=== PATIENT | male | born 1955 | race Caucasian/White ===

== ENCOUNTER 2016-04-04 10:14 | Inpatient (IN) | payer MEDICAID ==
[~2016-04-04] VITALS: Ht 167.6 cm; Wt 76.8 kg
[2016-04-04 12:42] LABS: ADD UMIC YES; URINE BILIRUBIN (Dip) NEGATIVE (NEGATIVE); URINE BLOOD (Dip) 2+ (NEGATIVE); URINE COLOR LT. YELLOW (YELLOW); URINE GLUCOSE (Dip) >=1000 % (NEGATIVE); URINE KETONES (Dip) NEGATIVE (NEGATIVE); URINE LEUKOCYTE ESTERASE (Dip) NEGATIVE (NEGATIVE); URINE NITRITE (Dip) NEGATIVE (NEGATIVE); URINE TOTAL PROTEIN (Dip) 2+ (NEGATIVE); URINE UROBILINOGEN (Dip) 0.2 E.U./dL (0.1-1.0)
[2016-04-04 12:52] LABS: POTASSIUM 4.4 mmol/L (3.5-5.1)
[2016-04-04 12:55] LABS: CREATININE 1.18 mg/dl (0.61-1.24); INR 0.96; PROTIME 12.8 Sec (12.2-14.2)
[2016-04-04 12:56] LABS: CALCIUM 8.7 mg/dl (8.4-10.2); PARTIAL THROMBOPLASTIN TIME 26.1 Sec (25.0-35.0)
[2016-04-04 13:17] LABS: BASOPHILS % 0.2 % (0.0-2.0); EOSINOPHILS # 0.2 10^3/ul (0.0-0.5); EOSINOPHILS % 1.7 % (0.0-7.0); HEMATOCRIT 29.4 % (42.0-52.0); LYMPHOCYTES # 1.2 10^3/ul (0.8-2.9); LYMPHOCYTES % 10.7 % (15.0-51.0); MEAN CORPUSCULAR HEMOGLOBIN 28.9 pg (29.0-33.0); MEAN CORPUSCULAR VOLUME 85.1 fl (82.0-101.0); MEAN PLATELET VOLUME 7.5 fl (7.4-10.4); MONOCYTE # 0.6 10^3/ul (0.3-0.9); MONOCYTES % 5.5 % (0.0-11.0); NEUTROPHIL # 9.3 10^3/ul (1.6-7.5); NEUTROPHILS % 81.9 % (39.0-77.0); PLATELET COUNT 475 10^3/UL (140-440); RED BLOOD COUNT 3.45 10^6/ul (4.70-6.10); UNCORRECTED WBC 11.3 10^3/ul (4.8-10.8); WHITE BLOOD COUNT 11.3 10^3/ul (4.8-10.8)
[2016-04-04 13:19] LABS: CONDITION 1
--- NOTE | 2016-04-04 14:26 | RADRPT ---
PROCEDURE: XR Chest 1 View. CLINICAL INDICATION: Abnormal breath sounds, preop. TECHNIQUE: AP view of the chest were obtained. COMPARISON: None. FINDINGS: The cardiomediastinal silhouette is within normal limits. Lungs are hyperexpanded. No consolidations are identified. No pneumothorax is seen. Osseous structures are intact. IMPRESSION: Hyperexpanded, clear lungs. RPTAT: AA .Elie Lowery MD, Date Time Electronically viewed and signed by .Elie Lowery MD, MD on 04/04/2016 14:26 .P/
--- NOTE | 2016-04-04 15:28 | RADRPT ---
PROCEDURE: XR Foot. CLINICAL INDICATION: Left foot pain and swelling. bilateral lower extremity gangrene. TECHNIQUE: Three views of the left foot are available for review. COMPARISON: None available FINDINGS: There are postsurgical changes of prior fifth ray amputation and partial amputation of the head and neck of the fourth metatarsal. Severe neuropathic changes are seen involving the intertarsal and tar sometatarsal joints. There is disorganization and productive osseous changes. There is loss of hieu ntar arch. There is probable plantar ulcer at the level of talonavicular joint. Vascular calcifica tions consistent with atherosclerosis. IMPRESSION: 1. Probable ulcer in the plantar in the region of the talonavicular joint. Recommend MRI for the ev aluation of osteomyelitis. 2. Severe neuropathic joint changes. 3. Prior amputation of the fifth ray and partial amputation of the head and neck of the fourth meta tarsal. 4. Vascular calcifications. RPTAT: BB .Rosario Parra MD, MD Date Time Electronically viewed and signed by .Rosario Parra MD, on 04/04/2016 15:28 .O/
--- NOTE | 2016-04-04 15:31 | RADRPT ---
PROCEDURE: XR Ankle. CLINICAL INDICATION: Right ankle pain TECHNIQUE: Three views of the right ankle are available for review. COMPARISON: None available FINDINGS: There is diffuse soft tissue swelling. Prior amputation of the metatarsals. There is a small planta r calcaneal spur. There is no acute fracture or dislocation. Vascular calcifications consistent wi th atherosclerosis. There is no lytic / destructive changes. IMPRESSION: 1. No lytic or destructive osseous changes. 2. Diffuse soft tissue swelling. 3. Prior amputations at the level of the metatarsal neck. 4. Vascular calcifications. RPTAT: BB .Rosario Parra MD, Date Time Electronically viewed and signed by .Rosario Parra MD, on 04/04/2016 15:30 .O/
--- NOTE | 2016-04-04 15:39 | RADRPT ---
PROCEDURE: XR Ankle. CLINICAL INDICATION: Left ankle pain. TECHNIQUE: 3 views of the left ankle were performed. COMPARISON: None. FINDINGS: There are severe neuropathic changes involving the intertarsal joints more evident at the calcaneocu boid. There is a plantar ulcer at the lateral midfoot. Extensive productive osseous changes are pr esent at the intertarsal joints. There is diffuse soft tissue swelling. Partially imaged amputatio n of the metatarsals. There is no acute fracture or dislocation. IMPRESSION: 1. Plantar ulcer at the lateral midfoot. Severe neuropathic changes involving the intertarsal join ts. It is difficult to exclude osteomyelitis. Recommend MRI for further evaluation. 2. Diffuse soft tissue swelling. 3. Vascular calcifications. RPTAT: BB .Rosario Parra MD, Date Time Electronically viewed and signed by .Rosario Parra MD, on 04/04/2016 15:38 .O/
--- NOTE | 2016-04-04 15:51 | RADRPT ---
PROCEDURE: Right foot series CLINICAL INDICATION: Pain TECHNIQUE: Three views. COMPARISON: None FINDINGS: The patient is status post prior amputation of the metatarsals at the midshaft level. No lytic / juan antonio tructive osseous changes are noted. There is diffuse soft tissue swelling. The bones are demineral ized. IMPRESSION: 1. No lytic / destructive osseous changes. 2. Diffuse soft tissue swelling. 3. Prior amputation at the midshaft metatarsals. RPTAT: BB .Rosario Parra MD, Date Time Electronically viewed and signed by .Rosario Parra MD, on 04/04/2016 15:42 .O/
--- NOTE | 2016-04-04 18:19 | HP ---
DATE OF ADMISSION: 04/04/2016 CONSULTANTS: 1. Dr. Maximo Pritchard 2. Dr. Aramis Bobo 3. Dr. Lockett. CHIEF COMPLAINT: Left foot diabetic ulcer. HISTORY OF PRESENT ILLNESS: This is a very pleasant 60-year-old gentleman with past medical history of diabetes mellitus, dyslipidemia, hypertension, bilateral foot ulcer. The patient is status post bilateral foot fifth toe amputations, who has been having an ulcer in the lateral aspect of his lef t foot and was followed up at [facility]wound clinic today and was found to have worsening of his ulcer. Therefore, the patient has been set up to be transferred to [facility] for further evaluation and IV antibiotics. At this time, the patient denies any chest pain, shortness of breat h, nausea, vomiting, diarrhea. No headache, dizziness, lightheadedness. No change in visual acuity , diplopia, photophobia. No abdominal pain, no change in the color of stool. Positive for pain in the lateral aspect of his left foot and sole of his right foot pain ____ ulcers and worsening of the ulcer. PAST MEDICAL AND SURGICAL HISTORY: 1. Hypertension. 2. Diabetes mellitus. 3. Dyslipidemia. 4. Peripheral vascular disease. MEDICATIONS: List is unknown at this time. ALLERGIES: NO KNOWN DRUG ALLERGIES. FAMILY HISTORY: Positive for diabetes mellitus and hypertension. SOCIAL HISTORY: Negative x3 for smoking, alcohol, illicit drugs. REVIEW OF SYSTEMS: As above per HPI, otherwise 12 systems have been found to be negative. PHYSICAL EXAMINATION: VITAL SIGNS: The patient is afebrile, blood pressure 124/65. GENERAL APPEARANCE: The patient is lying in bed comfortably without any distress. He is awake, terry rt, oriented. He is able to answer my questions properly. EYES AND EARS, NOSE, THROAT: Conjunctivae and lids are normal. Pupils are normal. Extraocular nor mal. Hearing grossly normal. Lips are normal. Oral mucosa is moist. NECK: Supple. Trachea is midline. No lymphadenopathy. RESPIRATORY: Effort is normal. Clear to auscultation bilaterally. CARDIOVASCULAR: Normal S1, S2. Regular rhythm and rate. No murmur, no bruits, no edema. Peripher al pulses, radial pulses palpable. Cap refill is normal. CHEST: Normal expansion of thorax during inspiration. GASTROINTESTINAL: Abdomen is soft, nontender, not distended. Bowel sounds present. No guarding, n o rebound. GENITOURINARY: Deferred. MUSCULOSKELETAL: Upper extremities within normal limits. Lower extremity there is a ____ x 2 ulcer on the lateral aspect of his right foot. There are 2 ulcers on the sole of his right foot, which a re 2 x 2 cm. Decreased pulses in bilateral lower extremities. NEUROLOGIC: Cranial nerves II through XII are grossly intact. PSYCHIATRIC: Normal judgment and insight. Alert and oriented x3. Mood and affect is normal. LABORATORY WORK: Glucose 325. ASSESSMENT AND PLAN: 1. Diabetic foot ulcer. 2. Peripheral vascular disease. 3. Dyslipidemia. 4. Diabetes mellitus. 5. Hypertension. 6. Recurrent diabetic foot ulcer. PLAN: The patient will be admitted to med/surg. The patient will be placed on Zosyn and vancomycin . Infectious disease, podiatry, and vascular surgeon will be consulted. The patient will be placed on insulin sliding scale and low carb diet. We will obtain patient's home medication. The patient will be started on Lantus, although he does not know how many units. In regard to his blood pressu re, his blood pressure is moderately controlled. We will obtain his home medication. Will restart his medications. We will continue to monitor patient closely. Further recommendations, management, and treatment as per clinical course. For DVT, the patient has been placed on Lovenox. Total time spent for evaluation of patient and admission workup 40 minutes. Dictated By: BRIAN EPÑA/NTS Conf#: [id number] DID#: [id number]
[2016-04-04 20:00] VITALS: Ht 167.6 cm; Wt 76.8 kg
[2016-04-04 20:38] VITALS: BP 150/65; RESP 18
[2016-04-04] MEDS ORDERED: VANCOMYCIN IV PER PHARMACY XX SCH (21:00)
[2016-04-04] MEDS ORDERED: ACETAMINOPHEN 325 MG TAB PO PRN (21:00)
[2016-04-04] MEDS ORDERED: DOCUSATE SODIUM 100 MG CAP PO PRN (21:00)
[2016-04-04] MEDS ORDERED: INSULIN GLARGINE [LANtus] 3 ML PEN SC SCH (21:00)
[2016-04-04] MEDS ORDERED: ONDANSETRON 4 MG INJ IV PRN (21:00)
[2016-04-04] MEDS ORDERED: BISACODYL (EC) 5 MG TAB PO PRN (21:00)
[2016-04-04] MEDS ORDERED: DEXTROSE 50% 50 ML SYRINGE IV PRN ×2 (22:30)
[2016-04-04] MEDS ORDERED: GLUCAGON 1 MG INJ IM PRN (22:30)
[2016-04-04] MEDS ORDERED: GLUCOSE GEL 15 GRAM TUBE BUCCAL PRN (22:30)
[2016-04-04] MEDS ORDERED: GLUCOSE GEL 15 GRAM TUBE PO PRN ×2 (22:30)
[2016-04-04] MEDS ORDERED: SOD CHLORIDE 0.9% 500 ML IV ONE (23:00)
[2016-04-04] MEDS ORDERED: INSULIN ASPART [NOVOLOG] 3 ML PEN SC ONE (23:00)
[2016-04-04] MEDS: INSULIN GLARGINE [LANtus] 3 ML PEN SC SCH (23:07)
[2016-04-04] MEDS: INSULIN ASPART [NOVOLOG] 3 ML PEN SC SCH (23:09)
[2016-04-04] MEDS: PIPER-TAZO 3.375 GM IV (PMX) 100 ML IVPB SCH (23:13)
[2016-04-05] MEDS: SOD CHLORIDE 0.9% 1,000 ML IV SCH ×3 (00:44→19:00)
[2016-04-05] MEDS: HYDROCODONE/APAP (5/325) TAB PO PRN ×2 (00:54→21:24)
[2016-04-05] MEDS: VANCOMYCIN 1.75 GM in NS 500 ML IVPB SCH ×2 (01:45→23:01)
[2016-04-05] MEDS: ACCUCHECK XX SCH (02:00)
[2016-04-05] MEDS ORDERED: ACCUCHECK XX SCH (02:00)
--- NOTE | 2016-04-05 03:28 | CONS ---
DATE OF ADMISSION: 04/04/2016 DATE OF CONSULTATION: 04/04/2016 TYPE OF CONSULTATION: Infectious Disease. REASON FOR CONSULTATION: Antibiotic management. HISTORY OF PRESENT ILLNESS: Raul Dietz is a pleasant 60-year-old male who comes in with l eft foot diabetic ulcer. His past problems include: 1. Adult-onset diabetes mellitus. 2. Dyslipidemia. 3. Hypertension. 4. Bilateral foot ulcers. 5. Peripheral vascular disease. 6. Status post bilateral fifth toe amputations. The patient has been having ulcer to the lateral aspect of the left foot and was followed at the [facility]. At the wound clinic today he was found to have worsening of ulcer. Therefore, he was mcrae sferred to [facility] for further evaluation and antibiotic therapy. On admission, his whi te count was 11.3, H and H of 10 and 29.4, platelet count of 475,000. BUN and creatinine were 24/1. 18. Urine negative for nitrites and leukocyte esterase, 2 to 5 white cells per high-power field. H is foot x-ray showed no lytic or destructive lesions, prior amputation of the metatarsals at the mid shaft level, diffuse soft tissue swelling, bones are demineralized, the left foot probable ulcer in the plantar region of the talonavicular joint. Recommend MRI for further evaluation of osteomyelit is. Severe neuropathic joint changes, prior amputation of the 5th ray, and partial amputation of th e head and neck of the 4th metatarsal, and vascular calcifications disease. The patient was noted t o have bilateral lower extremity gangrene. Chest x-ray hyperexpanded clear lungs. Ankle x-ray: No lytic or destructive changes. Diffuse soft tissue swelling. Prior amputation at the level of the metatarsal neck, the right foot, and the left plantar ulcer at the lateral mid foot, neuropathic igor nges involving the intertarsal joints. Difficult to exclude osteomyelitis. MRI recommended for the left foot. Urinalysis as mentioned. BUN and creatinine 24/1.18. White count 11.3, H and H of 10 and 29.4, platelet count 475,000 with 82% polys. PAST MEDICAL HISTORY: Operations as outlined. FAMILY HISTORY: Noncontributory. SOCIAL HISTORY: Does not smoke, drink, or abuse drugs. ALLERGIES: NONE TO PENICILLIN, SULFA, OR FOODS. MEDICATIONS: Per chart. REVIEW OF SYSTEMS: As per HPI. PHYSICAL EXAMINATION: GENERAL: The patient is a well-developed, well-nourished male, alert, responsive, in no acute distr ess. VITAL SIGNS: Stable. He is afebrile. SKIN: Without generalized rash. HEENT: Within normal limits. NECK: Supple. LYMPH NODES: None palpable. CHEST: Decreased breath sounds at the bases. HEART: Without murmur or gallop. ABDOMEN: Soft, nontender, without organosplenomegaly or masses. EXTREMITIES: Upper extremities within normal limit. Lower extremities, he has some ulcerations on the lateral aspect of the right foot. There are 2 ulcers on the sole of the right foot which are 2 x 2 cm. Decreased pulses in both lower extremities. NEUROLOGIC: Decreased sensation in distal extremities. Otherwise, no focal neurological abnormalit y. IMPRESSION AND PLAN: The patient has a diabetic foot ulcer. He was started on vancomycin and Zosyn . He should have podiatry following him. He should be on Lovenox for prophylaxis. I will dictate my findings to the hospitalist and to Dr. Maximo Pritchard. Dictated By: CAPO MOYER MD, JD/POLLY Conf#: [id number] DID#: [id number]
[2016-04-05 06:11] LABS: ALBUMIN 2.5 g/dl (3.3-4.9); POTASSIUM 3.7 mmol/L (3.5-5.1)
[2016-04-05 06:13] LABS: CREATININE 1.32 mg/dl (0.61-1.24)
[2016-04-05 06:14] LABS: ALBUMIN/GLOBULIN RATIO 0.67; CALCIUM 8.1 mg/dl (8.4-10.2); TOTAL PROTEIN 6.2 g/dl (6.1-8.1)
[2016-04-05] MEDS: PANTOPRAZOLE (EC) 40 MG TAB PO SCH (06:14)
[2016-04-05] MEDS: PIPER-TAZO 3.375 GM IV (PMX) 100 ML IVPB SCH ×2 (06:14→13:27)
[2016-04-05] MEDS ORDERED: INSULIN ASPART [NOVOLOG] 3 ML PEN SC SCH (08:00)
[2016-04-05] MEDS: INSULIN ASPART [NOVOLOG] 3 ML PEN SC SCH ×7 (08:00→21:26)
[2016-04-05 08:13] VITALS: BP 131/62; RESP 16
[2016-04-05] MEDS: ENOXAPARIN 30 MG/0.3 ML SYG SC SCH (08:33)
--- NOTE | 2016-04-05 16:53 | PN ---
Date/Time of Note Date/Time of Note DATE: 04/05/16 TIME: 16:50 Assessment/Plan VTE Prophylaxis VTE Prophylaxis Intervention: LMWH Lines/Catheters IV Catheter Type (from [facility]): Peripheral IV Urinary Cath still in place: No Assessment/Plan Chief Complaint/Hosp Course ASSESSMENT AND PLAN: 1. Diabetic foot ulcer., Continue Zosyn and vancomycin, infectious disease podiatry has been consulted 2. Peripheral vascular disease. Follow up lipid panel continue aspirin 3. Dyslipidemia. Follow-up lipid panel and treat accordingly 4. Diabetes mellitus. Continue medical management, insulin sliding scale, low- carb diet 5. Hypertension. Well-controlled on medical management 6. Recurrent diabetic foot ulcer. We will continue to monitor patient closely. Further recommendations, management, and treatment as per clinical course. For DVT, the patient has been placed on Lovenox. Problems: Subjective 24 Hr Interval Summary Free Text/Dictation Patient complaint continues to complain of having bilateral foot pain No nausea vomiting diarrhea Tolerating oral intake Exam/Review of Systems Vital Signs Vitals Vital Signs Date Time Temp Pulse Resp B/P Pulse Ox O2 Delivery O2 Flow Rate FiO2 04/05/16 08:13 98.1 82 16 131/62 99 Intake and Output 04/04/16 04/04/16 04/05/16 14:59 22:59 06:59 Intake Total 2020 ml Output Total 950 ml Balance 1070 ml Exam General: The patient is well-developed, Not in acute distress. HEENT: Atraumatic, normocephalic. The pupils are equal and round . Neck: Supple with full range of motion. Chest: Normal expansion of the thorax during inspiration Lungs: Clear to auscultation bilaterally Heart: Normal S1-S2, Regular rhythm and rate. Abdomen: Soft , nontender, nondistended , bowel sounds are present. Extremities: Left foot ulcer on the lateral aspect, right foot ulcer 2 and sole of the foot, no edema no cyanosis Neurologic: Normal mental status,The patient is awake, alert and oriented . Results Result Diagram: 04/04/16 1219 04/05/16 0517 Results 24 hrs Laboratory Tests Test 04/04/16 20:25 04/04/16 22:34 04/05/16 01:49 04/05/16 05:17 Bedside Glucose 335 H 516 *H 102 Alanine Aminotransferase (ALT/SGPT) 24 Albumin 2.5 L Albumin/Globulin Ratio 0.67 Alkaline Phosphatase 91 Anion Gap 11 Aspartate Amino Transf (AST/SGOT) 11 L Blood Urea Nitrogen 22 H Calcium Level 8.1 L Carbon Dioxide Level 29 Chloride Level 101 Creatinine 1.32 H Direct Bilirubin 0.00 Globulin 3.70 H Glucose Level 75 # Indirect Bilirubin 0.0 Potassium Level 3.7 Sodium Level 137 Total Bilirubin 0.0 L Total Protein 6.2 Test 04/05/16 08:14 04/05/16 11:11 Bedside Glucose 85 224 H Medications Medications Current Medications Piperacillin Sod/ Tazobactam Sod (Zosyn 3.375gm/ 100 ml (Pmx)) 100 ml @ 200 mls /hr Q8 IVPB Last administered on 04/05/16 13:27; Admin Dose 200 MLS/HR; Start 04/04/16 at 22:00 Acetaminophen (Tylenol Tab) 650 mg Q6H PRN PO PAIN AND OR ELEVATED TEMP; Start 04/04/16 at 21:00 Bisacodyl (Dulcolax) 10 mg DAILY PRN PO CONSTIPATION; Start 04/04/16 at 21:00 Docusate Sodium (Colace) 100 mg BID PRN PO CONSTIPATION; Start 04/04/16 at 21: 00 Enoxaparin Sodium (Lovenox) 30 mg DAILY SC Last administered on 04/05/16 08:33 ; Admin Dose 30 MG; Start 04/05/16 at 09:00 Acetaminophen/ Hydrocodone Bitart ([place] (5/325)) 1 tab Q6H PRN PO PAIN Last administered on 04/05/16 00:54; Admin Dose 1 TAB; Start 04/04/16 at 21:00 Pantoprazole (Protonix Tab) 40 mg DAILY@06 PO Last administered on 04/05/16 06 :14; Admin Dose 40 MG; Start 04/05/16 at 06:00 Ondansetron HCl (Zofran Inj) 4 mg Q6H PRN IV NAUSEA AND/OR VOMITING; Start at 21:00 Diagnostic Test (Pha) (Accucheck) 1 ea 02 XX ; Start 04/05/16 at 02:00 Miscellaneous Information 1 ea NOTE XX ; Start 04/04/16 at 22:30 Glucose (Glutose) 15 gm Q15M PRN PO DECREASED GLUCOSE; Start 04/04/16 at 22:30 Glucose (Glutose) 22.5 gm Q15M PRN PO DECREASED GLUCOSE; Start 04/04/16 at 22: 30 Dextrose (D50w Syringe) 25 ml Q15M PRN IV DECREASED GLUCOSE; Start 04/04/16 at 22:30 Dextrose (D50w Syringe) 50 ml Q15M PRN IV DECREASED GLUCOSE; Start 04/04/16 at 22:30 Glucagon (Glucagen) 1 mg Q15M PRN IM DECREASED GLUCOSE; Start 04/04/16 at 22:30 Glucose 15 gm 15 gm Q15M PRN BUCCAL DECREASED GLUCOSE; Start 04/04/16 at 22:30 Sodium Chloride 1,000 ml @ 100 mls/hr Q10H IV Last administered on 04/05/16 09:00; Admin Dose 100 MLS/HR; Start 04/04/16 at 23:00 Vancomycin HCl/ Sodium Chloride (Vancocin/NS) 500 ml @ 125 mls/hr Q24H IVPB Last administered on 04/05/16 01:45; Admin Dose 125 MLS/HR; Start 04/04/16 at 23:00 Insulin Glargine (Lantus) 25 unit HS SC Last administered on 04/04/16 23:07; Admin Dose 25 UNIT; Start 04/04/16 at 21:00 BRIAN AGRAWAL MD Apr 05, 2016 16:53
--- NOTE | 2016-04-05 16:57 | CONS ---
Date/Time of Note Date/Time of Note DATE: 04/05/16 TIME: 16:56 Consultation Date/Type/Reason Admit Date/Time Apr 04, 2016 at 19:05 Hx of Present Illness [facility] PROGRESS NOTE VASCULAR SURGERY Dear Doctors: Mr. Raul Dietz is a 60-year-old gentleman with longstanding history of noncompliance with his diabetes and the bilateral lower extremity diabetic foot ulcers that have been managed with local wound care for about 5 to 6 years. Patient was seen by us back in March 24, in which time patient was started on bi-weekly local wound care and evaluation by our nursing staff and by myself. It seems that the patient has some changes with his local wound care, as he has changed the dressings over the weekend himself and he is not necessarily compliant with his offloading of his pressure points, specifically over the areas of his ulcers. We had gone over his interventions with him last week, especially going over being compliant with his diabetic boots. The patient unfortunately has come in with what seems like worsening left plantar ulcer wound with areas of eschar gangrene. At the moment, the patient denies shortness of breath, chest pain, nausea, vomiting, fever or chills. He denies lower extremity claudication or rest pain-like symptoms. Patient is a current smoker and we had discussed with him for cessation; however, it seems that he is not compliant with that either. PHYSICAL EXAMINATION: GENERAL: Alert and oriented x3. LUNGS: Clear to auscultation bilaterally. HEART: S1, S2 present. ABDOMEN: Soft, nontender, nondistended. Bowel sounds positive. LOWER EXTREMITIES: Right lower extremity palpable femoral pulse, palpable pedal pulse. Motor, sensory intact. Cap refill 3 seconds. First metatarsal plantar ulcer has granulation tissue and a callus around it. He has another ulcer that is in the lateral mid foot around the fifth metatarsal area on the plantar aspect. It also has granulation tissue and no serous drainage or erythema. He does have some tenderness around the first toe area which is concerning since this is new since we had seen him last. Left lower extremity: He has palpable femoral pulse, palpable pedal pulse. Motor, sensory intact. Cap refill 3 seconds. presence lipodermatosclerosis of both extremities. On the left mid foot plantar wound that we had seen last week has grown in size, has developed areas of maceration, drainage. It looks purulent and tenderness. There are also areas that are concerning for gangrene , although it does not present itself as a wet gangrene. ASSESSMENT AND PLAN: Bilateral lower extremity atherosclerosis with diabetic foot infection. It seems the patient's left lower extremity has worsened ulceration and wound. Patient will require to be admitted for IV antibiotics and localized debridement. We will plan to obtain a consultation evaluation by our podiatry colleague, Dr. Pritchard. Further the patient underwent lower extremity noninvasive vascular studies that essentially demonstrated the patient has adequate perfusion to the foot. I am not as optimistic about his left lower extremity as the wound has progressed and the patient's compliance is of importance, however, it seems that he has not made that decision yet. I am hoping that we can debride this successfully for him and be able to provide adequate wound care. Also, offloading will be ideal, so perhaps can start him on total contact casting. Optimize vascular status (BP meds, diet, nutrition, exercise, sugar control, antiplatelets). We will plan to admit the patient and have infectious disease, feed grinder and podiatry colleagues involved. Discussed findings, plan and management with the patient and daughter at the bedside and they understand with a certified sticker operator. Thank you for allowing us to partake in the care of your patient. Please call with any questions. Social History Smoking Status: Never smoker Exam/Review of Systems Vital Signs Vitals Vital Signs Date Time Temp Pulse Resp B/P Pulse Ox O2 Delivery O2 Flow Rate FiO2 04/05/16 08:13 98.1 82 16 131/62 99 Intake and Output 04/04/16 04/04/16 04/05/16 15:00 23:00 07:00 Intake Total 2020 ml Output Total 950 ml Balance 1070 ml Results Result Diagram: 04/04/16 1219 04/05/16 0517 Results 24 hrs Laboratory Tests Test 04/04/16 20:25 04/04/16 22:34 04/05/16 01:49 04/05/16 05:17 Bedside Glucose 335 H 516 *H 102 Alanine Aminotransferase (ALT/SGPT) 24 Albumin 2.5 L Albumin/Globulin Ratio 0.67 Alkaline Phosphatase 91 Anion Gap 11 Aspartate Amino Transf (AST/SGOT) 11 L Blood Urea Nitrogen 22 H Calcium Level 8.1 L Carbon Dioxide Level 29 Chloride Level 101 Creatinine 1.32 H Direct Bilirubin 0.00 Globulin 3.70 H Glucose Level 75 # Indirect Bilirubin 0.0 Potassium Level 3.7 Sodium Level 137 Total Bilirubin 0.0 L Total Protein 6.2 Test 04/05/16 08:14 04/05/16 11:11 04/05/16 16:31 Bedside Glucose 85 224 H 148 Medications Medications Current Medications Piperacillin Sod/ Tazobactam Sod (Zosyn 3.375gm/ 100 ml (Pmx)) 100 ml @ 200 mls /hr Q8 IVPB Last administered on 04/05/16 13:27; Admin Dose 200 MLS/HR; Start 04/04/16 at 22:00 Acetaminophen (Tylenol Tab) 650 mg Q6H PRN PO PAIN AND OR ELEVATED TEMP; Start 04/04/16 at 21:00 Bisacodyl (Dulcolax) 10 mg DAILY PRN PO CONSTIPATION; Start 04/04/16 at 21:00 Docusate Sodium (Colace) 100 mg BID PRN PO CONSTIPATION; Start 04/04/16 at 21: 00 Enoxaparin Sodium (Lovenox) 30 mg DAILY SC Last administered on 04/05/16 08:33 ; Admin Dose 30 MG; Start 04/05/16 at 09:00 Acetaminophen/ Hydrocodone Bitart ([place] (5/325)) 1 tab Q6H PRN PO PAIN Last administered on 04/05/16 00:54; Admin Dose 1 TAB; Start 04/04/16 at 21:00 Pantoprazole (Protonix Tab) 40 mg DAILY@06 PO Last administered on 04/05/16 06 :14; Admin Dose 40 MG; Start 04/05/16 at 06:00 Ondansetron HCl (Zofran Inj) 4 mg Q6H PRN IV NAUSEA AND/OR VOMITING; Start at 21:00 Diagnostic Test (Pha) (Accucheck) 1 ea 02 XX ; Start 04/05/16 at 02:00 Miscellaneous Information 1 ea NOTE XX ; Start 04/04/16 at 22:30 Glucose (Glutose) 15 gm Q15M PRN PO DECREASED GLUCOSE; Start 04/04/16 at 22:30 Glucose (Glutose) 22.5 gm Q15M PRN PO DECREASED GLUCOSE; Start 04/04/16 at 22: 30 Dextrose (D50w Syringe) 25 ml Q15M PRN IV DECREASED GLUCOSE; Start 04/04/16 at 22:30 Dextrose (D50w Syringe) 50 ml Q15M PRN IV DECREASED GLUCOSE; Start 04/04/16 at 22:30 Glucagon (Glucagen) 1 mg Q15M PRN IM DECREASED GLUCOSE; Start 04/04/16 at 22:30 Glucose 15 gm 15 gm Q15M PRN BUCCAL DECREASED GLUCOSE; Start 04/04/16 at 22:30 Sodium Chloride 1,000 ml @ 100 mls/hr Q10H IV Last administered on 04/05/16 09:00; Admin Dose 100 MLS/HR; Start 04/04/16 at 23:00 Vancomycin HCl/ Sodium Chloride (Vancocin/NS) 500 ml @ 125 mls/hr Q24H IVPB Last administered on 04/05/16 01:45; Admin Dose 125 MLS/HR; Start 04/04/16 at 23:00 Insulin Glargine (Lantus) 25 unit HS SC Last administered on 04/04/16 23:07; Admin Dose 25 UNIT; Start 04/04/16 at 21:00 KAYLA ROSS MD Apr 05, 2016 16:57
--- NOTE | 2016-04-05 18:09 | CONS ---
Date/Time of Note Date/Time of Note DATE: 04/05/16 TIME: 18:07 Assessment/Plan Assessment/Plan Problems: (1) Non-pressure chronic ulcer of other part of right foot with necrosis of muscle (2) Non-pressure chronic ulcer of other part of right foot with fat layer exposed (3) Charcot's joint, right ankle and foot (4) Charcot's joint, left ankle and foot (5) Diabetes, polyneuropathy (6) Peripheral vascular disease Additional Assessment/Plan Patient will be scheduled for surgical debridement of multiple open wounds of the right foot for tomorrow evening. Patient will be placed on n.p.o. after breakfast. Consent will be obtained for surgical debridement of multiple open wounds of the right foot. Consultation Date/Type/Reason Admit Date/Time Apr 04, 2016 at 19:05 Hx of Present Illness Thank you very much for involving me in the care of this patient. As you very well know this is a 60-year-old male patient with multiple medical problems including diabetes mellitus with peripheral neuropathy, dyslipidemia, hypertension, bilateral foot ulcerations and peripheral vascular disease who was seen at the amputation prevention center and was found to have infected feet with open wounds. Patient was admitted to the hospital for advanced care. I was consulted to evaluate the ulcers on both feet. Patient reports no pain and denies fever or chills. Patient is under care of infectious disease and vascular surgery. He is on IV antibiotics currently. Past Medical History As per history of present illness. Past Surgical History As per history of present illness. Social History Smoking Status: Never smoker Exam/Review of Systems Vital Signs Vitals Vital Signs Date Time Temp Pulse Resp B/P Pulse Ox O2 Delivery O2 Flow Rate FiO2 04/05/16 08:13 98.1 82 16 131/62 99 Intake and Output 04/04/16 04/04/16 04/05/16 15:00 23:00 07:00 Intake Total 2020 ml Output Total 950 ml Balance 1070 ml Exam Patient is in no acute distress laying supine in bed. Bandages were removed from right foot. Left foot shows discoloration patient has open wounds with necrotic and fibrotic tissue. Charcot changes noted on both feet. Palpable pedal pulses with significant decrease in protective sensation. Normal deep tendon reflexes noted. Patient has deformities on both feet with bony prominence of the arch area. Patient has open wound on the right foot on the plantar first MPJ measuring 1 x 1 cm with significant hyperkeratosis surrounding the wound. There is no bleeding and no pus. No underlying fluctuance. Second wound present on the plantar central lateral portion of the foot with significant macerated skin. The wound measures 2 x 2 cm with 1 cm depth. There is malodor present. Mainly on the dorsal lateral aspect with significant dry skin. Labs and imaging were reviewed. Dorsalis pedis and posterior tibial pulse is weak. Results Result Diagram: 04/04/16 1219 04/05/16 0517 Results 24 hrs Laboratory Tests Test 04/04/16 20:25 04/04/16 22:34 04/05/16 01:49 04/05/16 05:17 Bedside Glucose 335 H 516 *H 102 Alanine Aminotransferase (ALT/SGPT) 24 Albumin 2.5 L Albumin/Globulin Ratio 0.67 Alkaline Phosphatase 91 Anion Gap 11 Aspartate Amino Transf (AST/SGOT) 11 L Blood Urea Nitrogen 22 H Calcium Level 8.1 L Carbon Dioxide Level 29 Chloride Level 101 Creatinine 1.32 H Direct Bilirubin 0.00 Globulin 3.70 H Glucose Level 75 # Indirect Bilirubin 0.0 Potassium Level 3.7 Sodium Level 137 Total Bilirubin 0.0 L Total Protein 6.2 Test 04/05/16 08:14 04/05/16 11:11 04/05/16 16:31 Bedside Glucose 85 224 H 148 Medications Medications Current Medications Acetaminophen (Tylenol Tab) 650 mg Q6H PRN PO PAIN AND OR ELEVATED TEMP; Start 04/04/16 at 21:00 Bisacodyl (Dulcolax) 10 mg DAILY PRN PO CONSTIPATION; Start 04/04/16 at 21:00 Docusate Sodium (Colace) 100 mg BID PRN PO CONSTIPATION; Start 04/04/16 at 21: 00 Enoxaparin Sodium (Lovenox) 30 mg DAILY SC Last administered on 04/05/16 08:33 ; Admin Dose 30 MG; Start 04/05/16 at 09:00 Acetaminophen/ Hydrocodone Bitart ([place] (5/325)) 1 tab Q6H PRN PO PAIN Last administered on 04/05/16 00:54; Admin Dose 1 TAB; Start 04/04/16 at 21:00 Pantoprazole (Protonix Tab) 40 mg DAILY@06 PO Last administered on 04/05/16 06 :14; Admin Dose 40 MG; Start 04/05/16 at 06:00 Ondansetron HCl (Zofran Inj) 4 mg Q6H PRN IV NAUSEA AND/OR VOMITING; Start at 21:00 Diagnostic Test (Pha) (Accucheck) 1 ea 02 XX ; Start 04/05/16 at 02:00 Miscellaneous Information 1 ea NOTE XX ; Start 04/04/16 at 22:30 Glucose (Glutose) 15 gm Q15M PRN PO DECREASED GLUCOSE; Start 04/04/16 at 22:30 Glucose (Glutose) 22.5 gm Q15M PRN PO DECREASED GLUCOSE; Start 04/04/16 at 22: 30 Dextrose (D50w Syringe) 25 ml Q15M PRN IV DECREASED GLUCOSE; Start 04/04/16 at 22:30 Dextrose (D50w Syringe) 50 ml Q15M PRN IV DECREASED GLUCOSE; Start 04/04/16 at 22:30 Glucagon (Glucagen) 1 mg Q15M PRN IM DECREASED GLUCOSE; Start 04/04/16 at 22:30 Glucose 15 gm 15 gm Q15M PRN BUCCAL DECREASED GLUCOSE; Start 04/04/16 at 22:30 Sodium Chloride 1,000 ml @ 100 mls/hr Q10H IV Last administered on 04/05/16 09:00; Admin Dose 100 MLS/HR; Start 04/04/16 at 23:00 Vancomycin HCl/ Sodium Chloride (Vancocin/NS) 500 ml @ 125 mls/hr Q24H IVPB Last administered on 04/05/16 01:45; Admin Dose 125 MLS/HR; Start 04/04/16 at 23:00 Insulin Glargine (Lantus) 25 unit HS SC Last administered on 04/04/16 23:07; Admin Dose 25 UNIT; Start 04/04/16 at 21:00 Levofloxacin (Levaquin) 500 mg DAILY@06 PO ; Start 04/06/16 at 06:00 LUIS MAI DPM Apr 05, 2016 18:09
--- NOTE | 2016-04-05 19:26 | PN ---
DATE: 04/05/2016 SUBJECTIVE: No acute changes. Patient is alert, looks comfortable. Denies pain, no fevers. MICROBIOLOGY 1. Blood culture growing gram-positive cocci in clusters, 1 out of 2 sets. 2. Wound cultures are pending. ANTIMICROBIALS The patient is on: 1. Vancomycin IV. 2. Zosyn. PHYSICAL EXAMINATION GENERAL: Well-nourished, well-developed elderly man who is alert, in no distress. HEENT: Head atraumatic, normocephalic. Sclerae are anicteric. Buccal mucosa pink. NECK: Supple, trachea midline. CHEST: Rise symmetrical. Breath sounds clear. HEART: S1, S2. ABDOMEN: Soft. Bowel tones present. EXTREMITIES: Without cyanosis, with bilateral feet dressings intact. ASSESSMENT 1. Bilateral lower extremities diabetic ulcerations with left lower extremity ____ ulceration and w ound. 2. Bacteremia, with blood culture growing gram-positive cocci. 3. Peripheral vascular disease. 4. Diabetes. 5. 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 PLAN: The patient remains stable. Pending final cultures. We are going to swab his nares for MRSA . We will change Zosyn to oral Levaquin. Follow podiatry and vascular recommendations. Continue t o control his blood sugar and wait for wound cultures. Dictated By: MITZY GOODMAN SENIOR GL ACCOUNTANT for [facility]/POLLY Conf#: [id number] DID#: [id number]
[2016-04-05 20:33] VITALS: BP 154/71; RESP 18
[2016-04-05] MEDS ORDERED: INSULIN GLARGINE [LANtus] 3 ML PEN SC SCH (21:00)
[2016-04-05] MEDS: INSULIN GLARGINE [LANtus] 3 ML PEN SC SCH (21:26)
[2016-04-06] VITALS (7 sets, daily range): BP systolic 129–166; BP diastolic 59–83; PULSE 78–80; RESP 14–18
[2016-04-06] MEDS: ACCUCHECK XX SCH (02:00)
[2016-04-06] MEDS: PANTOPRAZOLE (EC) 40 MG TAB PO SCH (05:05)
[2016-04-06] MEDS: SOD CHLORIDE 0.9% 1,000 ML IV SCH ×2 (05:05→14:47)
[2016-04-06] MEDS: LEVOFLOXACIN 500 MG TAB PO SCH (05:06)
[2016-04-06 06:44] LABS: IRON 11 ug/dl (35-150)
[2016-04-06 06:53] LABS: TOTAL IRON BINDING CAPACITY 203 ug/dl (241-421)
[2016-04-06 06:55] LABS: CHOL/HDL RATIO 6.1 RATIO
[2016-04-06 07:31] LABS: MAGNESIUM 1.8 mg/dl (1.7-2.5)
[2016-04-06] MEDS: INSULIN ASPART [NOVOLOG] 3 ML PEN SC SCH ×7 (07:35→21:00)
[2016-04-06] MEDS: ENOXAPARIN 30 MG/0.3 ML SYG SC SCH (09:00)
--- NOTE | 2016-04-06 09:24 | RADRPT ---
Vent Rate: 94 bpm RR Interval: 0 msec AK Interval: 130 msec QRS Duration: 88 msec QT Interval: 366 msec QTC Interval: 457 msec P-R-T [place]: 66 - 60 - 86 degrees Sinus rhythm with occasional premature ventricular complexes Otherwise normal ECG Electronically Signed By: Pietro Nelson [id number]
--- NOTE | 2016-04-06 15:53 | PN ---
Date/Time of Note Date/Time of Note DATE: 04/06/16 TIME: 15:51 Assessment/Plan VTE Prophylaxis VTE Prophylaxis Intervention: LMWH Lines/Catheters IV [facility] Peripheral IV Urinary Cath still in place: No Assessment/Plan Chief Complaint/Hosp Course ASSESSMENT AND PLAN: 1. Diabetic foot ulcer., Continue Zosyn and vancomycin, infectious disease podiatry has been consulted Plan for debridement this afternoon 2. Peripheral vascular disease. Follow up lipid panel continue aspirin 3. Dyslipidemia. Follow-up lipid panel and treat accordingly 4. Diabetes mellitus. Continue medical management, insulin sliding scale, low- carb diet 5. Hypertension. Well-controlled on medical management 6. Recurrent diabetic foot ulcer. 7. Iron deficiency anemia. Patient has been started on ferrous sulfate We will continue to monitor patient closely. Further recommendations, management, and treatment as per clinical course. For DVT, the patient has been placed on Lovenox. Problems: Subjective 24 Hr Interval Summary Free Text/Dictation Patient denies any chest pain or shortness of breath Denies of any pain in his extremities No nausea vomiting diarrhea N.p.o. secondary to upcoming procedure Exam/Review of Systems Vital Signs Vitals Vital Signs Date Time Temp Pulse Resp B/P Pulse Ox O2 Delivery O2 Flow Rate FiO2 04/06/16 07:56 98.6 72 18 129/59 96 Intake and Output 04/05/16 04/05/16 04/06/16 15:00 23:00 07:00 Intake Total 1400 ml 960 ml 1220 ml Output Total 1200 ml 1800 ml Balance 1400 ml -240 ml -580 ml Exam General: The patient is well-developed, Not in acute distress. HEENT: Atraumatic, normocephalic. The pupils are equal and round . Neck: Supple with full range of motion. Chest: Normal expansion of the thorax during inspiration Lungs: Clear to auscultation bilaterally Heart: Normal S1-S2, Regular rhythm and rate. Abdomen: Soft , nontender, nondistended , bowel sounds are present. Extremities: Bilateral foot ulcer, no edema no cyanosis Neurologic: Normal mental status,The patient is awake, alert and oriented . Results Result Diagram: 04/04/16 1219 04/05/16 0517 Results 24 hrs Laboratory Tests Test 04/05/16 16:31 04/05/16 21:10 04/06/16 03:13 04/06/16 05:25 Bedside Glucose 148 197 240 H Cholesterol Level 135 Cholesterol/HDL Ratio 6.1 Ferritin 103.0 HDL Cholesterol 22 L Hemoglobin A1c 12.4 H Iron Level 11 L LDL Cholesterol, Calculated 88 Magnesium Level 1.8 Percent Iron Saturation 5 L Total Iron Binding Capacity 203 L Triglycerides Level 124 Test 04/06/16 07:31 04/06/16 11:23 Bedside Glucose 157 111 Medications Medications Current Medications Acetaminophen (Tylenol Tab) 650 mg Q6H PRN PO PAIN AND OR ELEVATED TEMP; Start 04/04/16 at 21:00 Bisacodyl (Dulcolax) 10 mg DAILY PRN PO CONSTIPATION; Start 04/04/16 at 21:00 Docusate Sodium (Colace) 100 mg BID PRN PO CONSTIPATION; Start 04/04/16 at 21: 00 Enoxaparin Sodium (Lovenox) 30 mg DAILY SC Last administered on 04/05/16 08:33 ; Admin Dose 30 MG; Start 04/05/16 at 09:00 Acetaminophen/ Hydrocodone Bitart ([place] (5/325)) 1 tab Q6H PRN PO PAIN Last administered on 04/05/16 21:24; Admin Dose 1 TAB; Start 04/04/16 at 21:00 Pantoprazole (Protonix Tab) 40 mg DAILY@06 PO Last administered on 04/06/16 05: 05; Admin Dose 40 MG; Start 04/05/16 at 06:00 Ondansetron HCl (Zofran Inj) 4 mg Q6H PRN IV NAUSEA AND/OR VOMITING; Start at 21:00 Diagnostic Test (Pha) (Accucheck) 1 ea 02 XX ; Start 04/05/16 at 02:00 Miscellaneous Information 1 ea NOTE XX ; Start 04/04/16 at 22:30 Glucose (Glutose) 15 gm Q15M PRN PO DECREASED GLUCOSE; Start 04/04/16 at 22:30 Glucose (Glutose) 22.5 gm Q15M PRN PO DECREASED GLUCOSE; Start 04/04/16 at 22: 30 Dextrose (D50w Syringe) 25 ml Q15M PRN IV DECREASED GLUCOSE; Start 04/04/16 at 22:30 Dextrose (D50w Syringe) 50 ml Q15M PRN IV DECREASED GLUCOSE; Start 1/30/17 at 22:30 Glucagon (Glucagen) 1 mg Q15M PRN IM DECREASED GLUCOSE; Start 04/04/16 at 22:30 Glucose 15 gm 15 gm Q15M PRN BUCCAL DECREASED GLUCOSE; Start 04/04/16 at 22:30 Sodium Chloride 1,000 ml @ 100 mls/hr Q10H IV Last administered on 04/06/16 14 :47; Admin Dose 100 MLS/HR; Start 04/04/16 at 23:00 Vancomycin HCl/ Sodium Chloride (Vancocin/NS) 500 ml @ 125 mls/hr Q24H IVPB Last administered on 04/05/16 23:01; Admin Dose 125 MLS/HR; Start 04/04/16 at 23:00 Insulin Glargine (Lantus) 25 unit HS SC Last administered on 04/05/16 21:26; Admin Dose 25 UNIT; Start 04/04/16 at 21:00 Levofloxacin (Levaquin) 500 mg DAILY@06 PO Last administered on 04/06/16 05:06 ; Admin Dose 500 MG; Start 04/06/16 at 06:00 BIRAN AGRAWAL MD Apr 06, 2016 15:52
[2016-04-06] MEDS ORDERED: FENTAnyl 50 MCG/ML VIAL ONE (20:37)
[2016-04-06] MEDS ORDERED: PROPOFOL 20 ML ONE (20:37)
[2016-04-06] MEDS ORDERED: MIDAZOLAM 1 MG/ML 2 ML INJ ONE (20:37)
[2016-04-06] MEDS ORDERED: CEFAZOLIN 1 GM INJ ONE (20:42)
[2016-04-06] MEDS ORDERED: LIDOCAINE 1% (MDV) 20 ML INJ ONE (20:50)
[2016-04-06] MEDS ORDERED: BUPIVACAINE 0.5% (SDV) 30 ML INJ ONE (20:50)
[2016-04-06] MEDS ORDERED: LIDOCAINE 2% (MDV) 20 ML INJ ONE (20:54)
--- NOTE | 2016-04-06 21:31 | PN ---
DATE: 04/06/2016 SUBJECTIVE: No acute changes. The patient is alert, feels well, looks comfortable. No fevers. No labs. MICROBIOLOGY: Blood culture on admission grew gram-positive cocci in clusters 1 out of 2 sets. Lef t foot wound culture growing enterococcus species and gram-negative rods. ANTIMICROBIALS: The patient is on: 1. Levaquin. 2. Vancomycin. PHYSICAL EXAMINATION: GENERAL: Well-developed elderly man who is alert, in no distress. HEENT: Head atraumatic, normocephalic. Sclerae anicteric. Buccal mucosa pink. NECK: Supple. Trachea midline. CHEST: Rise symmetrical. Breath sounds clear. HEART: S1, S2. ABDOMEN: Soft. Bowel tones present. EXTREMITIES: Bilateral lower extremity dressings intact. ASSESSMENT: 1. Bilateral lower extremity diabetic ulceration with ____. 2. Diabetes. 3. Peripheral vascular disease. 4. Gram-positive cocci bacteremia, possibly contaminant. PLAN: The patient remains stable. Final cultures are pending. He is being followed by Podiatry an d vascular team. Continue antibiotics. Dictated By: MITZY GOODMAN CEMENT FINISHING SUPERVISOR for [facility] MD NI/NTS Conf#: [id number] DID#: [id number]
--- NOTE | 2016-04-06 21:36 | OPR ---
Date/Time of Note Date/Time of Note DATE: 04/06/16 TIME: 21:36 Operative Report Procedure Date: Apr 06, 2016 Preoperative Diagnosis Chronic infected open wound of the right foot Chronic infected open wound of the left foot Severe right foot deformity Severe left foot deformity Diabetes mellitus Peripheral neuropathy Peripheral vascular disease Postoperative Diagnosis Chronic infected open wound of the right foot Chronic infected open wound of the left foot Severe right foot deformity Severe left foot deformity Diabetes mellitus Peripheral neuropathy Peripheral vascular disease Operation Performed Excisional debridement of necrotic open wound of left foot measuring 4 x 3 cm to the level of muscle Excisional debridement of necrotic open wound of right foot measuring 2 x 2 centimeters to the level of muscle Surgeon: LUIS MAI DPM Anesthesia: general Estimated Blood Loss: 0 - 10 ml's Specimens Excisional debridement of multiple wounds of both feet. Wound culture. Complications: None Pt Condition Post Procedure: stable Disposition: PACU Indications This is a pleasant 61-year-old male patient who is been suffering with multiple open wounds on both feet for quite some time. Patient has been recently hospitalized for infection of both feet and I was consulted for evaluation and treatment. After my evaluation I diagnosed patient with necrotic affected multiple open wounds on both feet and my recommendation was surgical debridement in the operating room. Risks and complications of this type of surgery was discussed with patient in great detail. Risks and complications discussed include but are not limited to postoperative infection, postoperative pain, failure of surgery to correct the problem, deep venous thrombosis, limb loss and loss of life. An informed consent was obtained, signed and placed in the chart. No guarantee or warranty was given or implied as to the outcome of the procedure either in verbal or written form. Operative Findings Multiple open necrotic wounds on both feet in various stages of healing. Necrotic tissue noted on the left open wound. Procedure Description The patient was debrided at the preoperative area. The proposed procedure was discussed with patient in great detail. Risks and complications were discussed in great detail. Patient understands the risks and complications and agrees to the procedure. Questions were answered. The patient was then taken to the operating room and was placed on the operating table in the supine position. All bony prominences were padded properly. Timeout was called and the correct site surgery was identified with all members of the operating room. The patient was placed under mild sedation and injected both feet with half percent Marcaine plain. Both lower extremities were then scrubbed, prepped and draped in the usual aseptic manner. Attention was directed to the left foot. Large open wound on the plantar aspect was found with necrotic tissue. Sharp debridement and excisional debridement of left open wound was done to bleeding muscle tissue measuring 4 x 3 cm. A wound culture was obtained. The wound was flushed with copious amounts of sterile normal saline using pulse micromatic hone operator. A versa jet was used for fine irrigation. Same exact procedure was done on the right foot open wounds. Sterile dressing was applied to both feet. The patient tolerated the procedure and anesthesia well. He was transferred to the recovery room with vital signs stable and vascular status intact to both feet. Patient will be sent back to the floor after postoperative monitoring. Postoperative orders were written. Prognosis is guarded. Patient remains at risk for infection. Patient remains at risk for limb loss. LUIS MAI DPM Apr 06, 2016 21:36
--- NOTE | 2016-04-06 21:36 | HPN ---
Date/Time of Note Date/Time of Note DATE: 04/06/16 TIME: 21:36 Interval H&P Admission Note Pt. seen H&P reviewed: No system changes LUIS MAI DPM Apr 06, 2016 21:36
[2016-04-06] MEDS: INSULIN GLARGINE [LANtus] 3 ML PEN SC SCH (22:24)
[2016-04-06] MEDS: VANCOMYCIN 1.75 GM in NS 500 ML IVPB SCH (22:27)
[2016-04-07] MEDS: SOD CHLORIDE 0.9% 1,000 ML IV SCH ×3 (00:09→20:54)
[2016-04-07] MEDS: ACCUCHECK XX SCH (01:22)
[2016-04-07] MEDS: OXYCODONE/ACETAMINOPHEN (5/325) TAB PO PRN ×2 (02:14→15:35)
[2016-04-07] MEDS: LEVOFLOXACIN 500 MG TAB PO SCH (05:31)
[2016-04-07] MEDS: PANTOPRAZOLE (EC) 40 MG TAB PO SCH (05:31)
[2016-04-07 06:10] LABS: BASOPHILS % 0.5 % (0.0-2.0); EOSINOPHILS # 0.3 10^3/ul (0.0-0.5); EOSINOPHILS % 3.6 % (0.0-7.0); HEMATOCRIT 26.3 % (42.0-52.0); LYMPHOCYTES # 1.4 10^3/ul (0.8-2.9); LYMPHOCYTES % 17.2 % (15.0-51.0); MEAN CORPUSCULAR HEMOGLOBIN 29.2 pg (29.0-33.0); MEAN CORPUSCULAR HGB CONC 34.4 g/dl (32.0-37.0); MONOCYTE # 0.7 10^3/ul (0.3-0.9); NEUTROPHIL # 5.8 10^3/ul (1.6-7.5); NEUTROPHILS % 69.7 % (39.0-77.0); PLATELET COUNT 475 10^3/UL (140-440); RED BLOOD COUNT 3.09 10^6/ul (4.70-6.10); RED CELL DISTRIBUTION WIDTH 13.1 % (11.5-14.5); UNCORRECTED WBC 8.3 10^3/ul (4.8-10.8); WHITE BLOOD COUNT 8.3 10^3/ul (4.8-10.8)
[2016-04-07 06:27] LABS: CREATININE 1.19 mg/dl (0.61-1.24)
[2016-04-07 06:28] LABS: CALCIUM 8.1 mg/dl (8.4-10.2)
[2016-04-07 07:05] LABS: CONDITION 1
[2016-04-07 07:23] VITALS: BP 137/64; RESP 20
[2016-04-07] MEDS: INSULIN ASPART [NOVOLOG] 3 ML PEN SC SCH ×7 (08:00→20:54)
[2016-04-07] MEDS: FERROUS SULFATE (EC) 325 MG TAB PO SCH (08:48)
[2016-04-07] MEDS: ENOXAPARIN 30 MG/0.3 ML SYG SC SCH (08:48)
[2016-04-07] MEDS: ASCORBIC ACID 500 MG TAB PO SCH (08:48)
[2016-04-07 12:24] VITALS: BP 137/64; PULSE 78; RESP 20
[2016-04-07] MEDS ORDERED: HYDR-906 PO (17:08)
--- NOTE | 2016-04-07 17:17 | PN ---
Date/Time of Note Date/Time of Note DATE: 04/07/16 TIME: 17:14 Assessment/Plan VTE Prophylaxis VTE Prophylaxis Intervention: LMWH Lines/Catheters IV Catheter Type (from Nrs): Peripheral IV Urinary Cath still in place: No Assessment/Plan Assessment/Plan 1. Diabetic foot ulcer., Continue levaquin and vancomycin, s/p debridement 04/06. Case discussed with Dr. Nelson about antibiotics at home, dr nelson states we need to waiting for the final culture result 2. Peripheral vascular disease. Follow up lipid panel continue aspirin 3. Dyslipidemia. Follow-up lipid panel and treat accordingly 4. Diabetes mellitus. Continue medical management, insulin sliding scale, low- carb diet 5. Hypertension. Well-controlled on medical management 6. Recurrent diabetic foot ulcer. 7. Iron deficiency anemia. Patient has been started on ferrous sulfate Subjective 24 Hr Interval Summary Free Text/Dictation pain on feet, afebrile Exam/Review of Systems Vital Signs Vitals Vital Signs Date Time Temp Pulse Resp B/P Pulse Ox O2 Delivery O2 Flow Rate FiO2 04/07/16 12:24 97.3 78 20 137/64 Room Air 04/07/16 07:23 98 Intake and Output 04/06/16 04/06/16 04/07/16 15:00 23:00 07:00 Intake Total 200 ml 1400 ml Output Total 1305 ml 500 ml Balance -1105 ml 900 ml Exam Constitutional: alert, oriented, well developed Psych: nl mood/affect, no complaints Head: atraumatic, normocephalic Eyes: EOMI, PERRL, nl lids ENMT: mucosa pink and moist, nl external ears & nose, nl lips & teeth, nl nasal mucosa & septum Neck: non-tender, supple Respiratory: clear to auscultation, normal air movement, No congested cough, No crackles/rales, No diminished breath sounds, No intercostal retraction, No labored breathing, No respirations, No tactile fremitus, No wheezing Cardiovascular: nl pulses, regular rate and rhythm, No S3, No S4, No bruits, No diastolic murmur, No edema, No gallop, No irregular rhythm, No jugular venous distention (JVD), No murmurs/extra sounds, No rub, No systolic murmur Gastrointestinal: nl liver, spleen, non-tender, soft, No ascites, No bowel sounds, No distended, No firm, No hepatomegaly, No mass , No rebound or guarding, No splenomegaly, No surgical scars, No tender Musculoskeletal: nl extremities to inspection Extremities: other (wound on both feet) Neurological: MOHS SURGEON II-XII intact, nl mental status, nl speech, nl strength Skin: nl turgor, rash or lesions Lymph: nl lymph nodes Results Result Diagram: 04/07/16 0530 04/07/16 0530 Results 24 hrs Laboratory Tests Test 04/06/16 17:59 04/06/16 18:48 04/06/16 19:30 04/06/16 22:06 Bedside Glucose 73 114 101 79 Test 04/07/16 02:08 04/07/16 05:30 04/07/16 08:09 04/07/16 11:24 Bedside Glucose 216 131 179 Anion Gap 12 Basophils # 0.0 Basophils % 0.5 Blood Morphology Comment Blood Urea Nitrogen 15 Calcium Level 8.1 L Carbon Dioxide Level 29 Chloride Level 101 Creatinine 1.19 Eosinophils # 0.3 Eosinophils % 3.6 Glucose Level 181 Hematocrit 26.3 L Hemoglobin 9.0 L Lymphocytes # 1.4 Lymphocytes % 17.2 Mean Corpuscular Hemoglobin 29.2 Mean Corpuscular Hemoglobin Concent 34.4 Mean Corpuscular Volume 85.0 Mean Platelet Volume 7.0 L Monocytes # 0.7 Monocytes % 9.0 Neutrophils # 5.8 Neutrophils % 69.7 Nucleated Red Blood Cells # 0.0 Nucleated Red Blood Cells % 0.0 Platelet Count 475 H Potassium Level 4.0 Red Blood Count 3.09 L Red Cell Distribution Width 13.1 Sodium Level 138 White Blood Count 8.3 # Test 04/07/16 16:52 Bedside Glucose 194 Medications Medications Current Medications Acetaminophen (Tylenol Tab) 650 mg Q6H PRN PO PAIN AND OR ELEVATED TEMP; Start 04/04/16 at 21:00 Bisacodyl (Dulcolax) 10 mg DAILY PRN PO CONSTIPATION; Start 04/04/16 at 21:00 Docusate Sodium (Colace) 100 mg BID PRN PO CONSTIPATION; Start 04/04/16 at 21: 00 Enoxaparin Sodium (Lovenox) 30 mg DAILY SC Last administered on 04/07/16t 08:48 ; Admin Dose 30 MG; Start 04/05/16 at 09:00 Acetaminophen/ Hydrocodone Bitart ([place] (5/325)) 1 tab Q6H PRN PO PAIN Last administered on 04/05/16 21:24; Admin Dose 1 TAB; Start 04/04/16 at 21:00 Pantoprazole (Protonix Tab) 40 mg DAILY@06 PO Last administered on 04/07/16 05: 31; Admin Dose 40 MG; Start 04/05/16 at 06:00 Ondansetron HCl (Zofran Inj) 4 mg Q6H PRN IV NAUSEA AND/OR VOMITING; Start at 21:00 Diagnostic Test (Pha) (Accucheck) 1 ea 02 XX ; Start 04/05/16 at 02:00 Miscellaneous Information 1 ea NOTE XX ; Start 04/04/16 at 22:30 Glucose (Glutose) 15 gm Q15M PRN PO DECREASED GLUCOSE; Start 04/04/16 at 22:30 Glucose (Glutose) 22.5 gm Q15M PRN PO DECREASED GLUCOSE; Start 04/04/16 at 22: 30 Dextrose (D50w Syringe) 25 ml Q15M PRN IV DECREASED GLUCOSE Last administered on 04/06/16 18:07; Admin Dose 25 ML; Start 04/04/16 at 22:30 Dextrose (D50w Syringe) 50 ml Q15M PRN IV DECREASED GLUCOSE; Start 04/04/16 at 22:30 Glucagon (Glucagen) 1 mg Q15M PRN IM DECREASED GLUCOSE; Start 04/04/16 at 22:30 Glucose 15 gm 15 gm Q15M PRN BUCCAL DECREASED GLUCOSE; Start 04/04/16 at 22:30 Sodium Chloride 1,000 ml @ 100 mls/hr Q10H IV Last administered on 04/07/16 05 :32; Admin Dose 100 MLS/HR; Start 04/04/16 at 23:00 Vancomycin HCl/ Sodium Chloride (Vancocin/NS) 500 ml @ 125 mls/hr Q24H IVPB Last administered on 04/06/16 22:27; Admin Dose 125 MLS/HR; Start 04/04/16 at 23 :00 Insulin Glargine (Lantus) 25 unit HS SC Last administered on 04/06/16 22:24; Admin Dose 25 UNIT; Start 04/04/16 at 21:00 Levofloxacin (Levaquin) 500 mg DAILY@06 PO Last administered on 04/07/16 05:31 ; Admin Dose 500 MG; Start 04/06/16 at 06:00 Ferrous Sulfate (Ferrous Sulfate (Ec)) 325 mg DAILY PO Last administered on 04/07 08:48; Admin Dose 325 MG; Start 04/07/16 at 09:00 Ascorbic Acid (Vitamin C) 500 mg DAILY PO Last administered on 04/07/16 08:48; Admin Dose 500 MG; Start 04/07/16 at 09:00 Oxycodone/ Acetaminophen (Percocet (5/ 325)) 1 tab Q4H PRN PO PAIN Last administered on 04/07/16 15:35; Admin Dose 1 TAB; Start 04/06/16 at 22:00 Miscellaneous Information (*Rx Drug Level Order Reminder*) VANCO TROUGH @ 2, 200 ON... ONCE ONCE XX ; Start 04/07/16 at 22:00; Stop 04/07/16 at 22:01 BHARTI HENRY MD Apr 07, 2016 17:17
--- NOTE | 2016-04-07 17:17 | PN ---
DATE: 04/07/2016 SUBJECTIVE: No acute changes. The patient is alert, feels good, looks comfortable, no fevers. WBC 8.3, no shift, no bands. BUN 15, creatinine 1.19. MICROBIOLOGY: Blood culture on admission grew staph species 1 out of 2 sets. Left foot wound cultu re growing Proteus mirabilis and Enterococcus species. Intraoperative cultures also growing alpha h emolytic strep, Staphylococcus aureus, enterococcus species and Proteus mirabilis. ANTIMICROBIALS: The patient is on IV vancomycin and Levaquin. PHYSICAL EXAMINATION: GENERAL: Well-developed elderly man who is alert, in no distress. HEENT: Head atraumatic, normocephalic. Sclerae anicteric. Buccal mucosa pink. NECK: Supple, trachea midline. CHEST: Rise symmetrical. Breath sounds clear. HEART: S1, S2. ABDOMEN: Soft, bowel tones present. EXTREMITIES: With bilateral feet dressing intact. ASSESSMENT: 1. Bilateral lower extremity diabetic ulceration with infected wounds, status post incision and katharina inage, cultures growing multiple bacteria. 2. Diabetes. 3. Staphylococcus bacteremia, possibly contaminant. 4. Peripheral vascular disease secondary to diabetic neuropathy. PLAN: The patient remains stable postoperatively pending final sensitivities. We are going to repe at blood cultures, continue local wound care as per podiatry. Dictated By: MITZY GOODMAN HELP DESK SUPPORT SPECIALIST for [facility]/NTS Conf#: [id number] DID#: [id number]
[2016-04-07 19:34] VITALS: BP 153/73; RESP 18
[2016-04-07] MEDS: INSULIN GLARGINE [LANtus] 3 ML PEN SC SCH (20:54)
[2016-04-07] MEDS: VANCOMYCIN 1.75 GM in NS 500 ML IVPB SCH (23:41)
[2016-04-08] MEDS: OXYCODONE/ACETAMINOPHEN (5/325) TAB PO PRN ×3 (01:21→15:30)
[2016-04-08] MEDS: ACCUCHECK XX SCH (01:59)
[2016-04-08] MEDS: HYDROCODONE/APAP (5/325) TAB PO PRN ×2 (03:03→12:14)
[2016-04-08] MEDS: LEVOFLOXACIN 500 MG TAB PO SCH (05:25)
[2016-04-08] MEDS: PANTOPRAZOLE (EC) 40 MG TAB PO SCH (05:25)
[2016-04-08] MEDS: SOD CHLORIDE 0.9% 1,000 ML IV SCH ×2 (05:31→15:32)
[2016-04-08] MEDS: INSULIN ASPART [NOVOLOG] 3 ML PEN SC SCH ×7 (07:35→21:00)
[2016-04-08 07:55] VITALS: BP 139/65; RESP 16
[2016-04-08] MEDS: FERROUS SULFATE (EC) 325 MG TAB PO SCH (08:34)
[2016-04-08] MEDS: ASCORBIC ACID 500 MG TAB PO SCH (08:34)
[2016-04-08] MEDS: ENOXAPARIN 30 MG/0.3 ML SYG SC SCH (08:37)
[2016-04-08 11:19] VITALS: BP 137/64; PULSE 75; RESP 20
[2016-04-08 13:14] LABS: UFH SRA INTERPRETATION NEGATIVE (NEGATIVE)
--- NOTE | 2016-04-08 14:44 | CONS ---
Date/Time of Note Date/Time of Note DATE: 04/08/16 TIME: 14:43 Assessment/Plan Assessment/Plan Chief Complaint/Hosp Course SUBJECTIVE: No acute changes. The patient is alert, feels good, looks comfortable, no fevers. MICROBIOLOGY: Blood culture on admission grew staph species 1 out of 2 sets. Left foot wound culture growing Proteus mirabilis and Enterococcus species. Intraoperative cultures also growing alpha hemolytic strep, MRSA, enterococcus species and Proteus mirabilis. ANTIMICROBIALS: The patient is on IV vancomycin and Levaquin. PHYSICAL EXAMINATION: GENERAL: Well-developed elderly man who is alert, in no distress. HEENT: Head atraumatic, normocephalic. Sclerae anicteric. Buccal mucosa pink. NECK: Supple, trachea midline. CHEST: Rise symmetrical. Breath sounds clear. HEART: S1, S2. ABDOMEN: Soft, bowel tones present. EXTREMITIES: With bilateral feet dressing intact. ASSESSMENT: 1. Bilateral lower extremity diabetic ulceration with infected wounds, status post incision and drainage, cultures growing multiple bacteria. 2. Diabetes. 3. Staphylococcus bacteremia, possibly contaminant. 4. Peripheral vascular disease secondary to diabetic neuropathy. PLAN: The patient remains stable, pending repeat blood cultures, continue abx/ local wound care as per podiatry. staff Problems: Consultation Date/Type/Reason Admit Date/Time Apr 04, 2016 at 19:05 Initial Consult Date Type of Consultation: id Exam/Review of Systems Vital Signs Vitals Vital Signs Date Time Temp Pulse Resp B/P Pulse Ox O2 Delivery O2 Flow Rate FiO2 04/08/16 11:19 97.3 75 20 137/64 Room Air 04/08/16 07:55 95 Intake and Output 04/07/16 04/07/16 04/08/16 15:00 23:00 07:00 Intake Total 2020 ml 1910 ml Output Total 1100 ml 1250 ml Balance 920 ml 660 ml Results Result Diagram: 04/07/16 0530 04/07/16 0530 Results 24 hrs Laboratory Tests Test 04/07/16 16:52 04/07/16 20:52 04/07/16 21:55 04/08/16 01:58 Bedside Glucose 194 170 121 Vancomycin Level Trough 10.7 Test 04/08/16 08:02 04/08/16 11:37 Bedside Glucose 77 166 Medications Medications Current Medications Acetaminophen (Tylenol Tab) 650 mg Q6H PRN PO PAIN AND OR ELEVATED TEMP; Start 04/04/16 at 21:00 Bisacodyl (Dulcolax) 10 mg DAILY PRN PO CONSTIPATION; Start 04/04/16 at 21:00 Docusate Sodium (Colace) 100 mg BID PRN PO CONSTIPATION; Start 04/04/16 at 21: 00 Enoxaparin Sodium (Lovenox) 30 mg DAILY SC Last administered on 04/08/16 08:37 ; Admin Dose 30 MG; Start 04/05/16 at 09:00 Acetaminophen/ Hydrocodone Bitart ([place] (5/325)) 1 tab Q6H PRN PO PAIN Last administered on 04/08/16 12:14; Admin Dose 1 TAB; Start 04/04/16 at 21:00 Pantoprazole (Protonix Tab) 40 mg DAILY@06 PO Last administered on 04/08/16 05: 25; Admin Dose 40 MG; Start 04/05/16 at 06:00 Ondansetron HCl (Zofran Inj) 4 mg Q6H PRN IV NAUSEA AND/OR VOMITING; Start at 21:00 Diagnostic Test (Pha) (Accucheck) 1 ea 02 XX Last administered on 04/08/16 01: 59; Admin Dose 1 EA; Start 04/05/16 at 02:00 Miscellaneous Information 1 ea NOTE XX ; Start 04/04/16 at 22:30 Glucose (Glutose) 15 gm Q15M PRN PO DECREASED GLUCOSE; Start 04/04/16 at 22:30 Glucose (Glutose) 22.5 gm Q15M PRN PO DECREASED GLUCOSE; Start 04/04/16 at 22: 30 Dextrose (D50w Syringe) 25 ml Q15M PRN IV DECREASED GLUCOSE Last administered on 04/06/16 18:07; Admin Dose 25 ML; Start 04/04/16 at 22:30 Dextrose (D50w Syringe) 50 ml Q15M PRN IV DECREASED GLUCOSE; Start 04/04/16 at 22:30 Glucagon (Glucagen) 1 mg Q15M PRN IM DECREASED GLUCOSE; Start 04/04/16 at 22:30 Glucose 15 gm 15 gm Q15M PRN BUCCAL DECREASED GLUCOSE; Start 04/04/16 at 22:30 Sodium Chloride (NS) 1,000 ml @ 100 mls/hr Q10H IV Last administered on 05:31; Admin Dose 100 MLS/HR; Start 04/04/16 at 23:00 Insulin Glargine (Lantus) 25 unit HS SC Last administered on 04/07/16 20:54; Admin Dose 25 UNIT; Start 04/04/16 at 21:00 Levofloxacin (Levaquin) 500 mg DAILY@06 PO Last administered on 04/08/16 05:25 ; Admin Dose 500 MG; Start 04/06/16 at 06:00 Ferrous Sulfate (Ferrous Sulfate (Ec)) 325 mg DAILY PO Last administered on 04/08 08:34; Admin Dose 325 MG; Start 04/07/16 at 09:00 Ascorbic Acid (Vitamin C) 500 mg DAILY PO Last administered on 04/08/16 08:34; Admin Dose 500 MG; Start 04/07/16 at 09:00 Oxycodone/ Acetaminophen 1 tab 1 tab Q4H PRN PO PAIN Last administered on 08:34; Admin Dose 1 TAB; Start 04/06/16 at 22:00 Vancomycin HCl/ Sodium Chloride (Vancocin/NS) 150 ml @ 75 mls/hr Q12H IVPB ; Start 04/08/16 at 20:00 MITZY GOODMAN NP Apr 08, 2016 14:44
--- NOTE | 2016-04-08 16:49 | PN ---
Date/Time of Note Date/Time of Note DATE: 04/08/16 TIME: 16:42 Assessment/Plan VTE Prophylaxis VTE Prophylaxis Intervention: LMWH Lines/Catheters IV [facility] (from [facility]): Peripheral IV Urinary Cath still in place: No Assessment/Plan Assessment/Plan 1. Diabetic foot ulcer., Continue levaquin and vancomycin, s/p debridement 04/06. Case discussed with Dr. Pritchard who will check the wound today. ID for antibiotics outpatient 2. Peripheral vascular disease. Follow up lipid panel continue aspirin 3. Dyslipidemia. Follow-up lipid panel and treat accordingly 4. Diabetes mellitus. Continue medical management, insulin sliding scale, low- carb diet 5. Hypertension. Well-controlled on medical management 6. Recurrent diabetic foot ulcer. 7. Iron deficiency anemia. Patient has been started on ferrous sulfate 8. gospel worker for d/c plan/placement Subjective 24 Hr Interval Summary Free Text/Dictation states nobody to help him at home Exam/Review of Systems Vital Signs Vitals Vital Signs Date Time Temp Pulse Resp B/P Pulse Ox O2 Delivery O2 Flow Rate FiO2 04/08/16 11:19 97.3 75 20 137/64 Room Air 04/08/16 07:55 95 Intake and Output 04/07/16 04/07/16 04/08/16 15:00 23:00 07:00 Intake Total 2020 ml 1910 ml Output Total 1100 ml 1250 ml Balance 920 ml 660 ml Exam Constitutional: alert, oriented, well developed Psych: nl mood/affect, no complaints Head: atraumatic, normocephalic Eyes: EOMI, nl conjunctiva, nl lids ENMT: nl external ears & nose, nl lips & teeth Neck: non-tender, supple Respiratory: clear to auscultation, normal air movement, No congested cough, No crackles/rales, No diminished breath sounds, No intercostal retraction, No labored breathing, No other, No respirations, No tactile fremitus, No wheezing Cardiovascular: nl pulses, regular rate and rhythm, No S3, No S4, No bruits, No diastolic murmur, No edema, No gallop, No irregular rhythm, No jugular venous distention (JVD), No murmurs/extra sounds, No other, No rub, No systolic murmur Gastrointestinal: nl liver, spleen, non-tender, soft, No ascites, No bowel sounds, No distended, No firm, No hepatomegaly, No mass , No other, No rebound or guarding, No splenomegaly, No surgical scars, No tender Extremities: other (both foot wound) Neurological: GRAIN WEIGHER II-XII intact, nl mental status, nl speech, nl strength Results Result Diagram: 04/07/16 0530 04/07/16 0530 Results 24 hrs Laboratory Tests Test 04/07/16 16:52 04/07/16 20:52 04/07/16 21:55 04/08/16 01:58 Bedside Glucose 194 170 121 Vancomycin Level Trough 10.7 Test 04/08/16 08:02 04/08/16 11:37 Bedside Glucose 77 166 Medications Medications Current Medications Acetaminophen (Tylenol Tab) 650 mg Q6H PRN PO PAIN AND OR ELEVATED TEMP; Start 04/04/16 at 21:00 Bisacodyl (Dulcolax) 10 mg DAILY PRN PO CONSTIPATION; Start 04/04/16 at 21:00 Docusate Sodium (Colace) 100 mg BID PRN PO CONSTIPATION; Start 04/04/16 at 21: 00 Enoxaparin Sodium (Lovenox) 30 mg DAILY SC Last administered on 04/08/16 08:37 ; Admin Dose 30 MG; Start 04/05/16 at 09:00 Acetaminophen/ Hydrocodone Bitart ([place] (5/325)) 1 tab Q6H PRN PO PAIN Last administered on 04/08/16 12:14; Admin Dose 1 TAB; Start 04/04/16 at 21:00 Pantoprazole (Protonix Tab) 40 mg DAILY@06 PO Last administered on 04/08/16 05: 25; Admin Dose 40 MG; Start 04/05/16 at 06:00 Ondansetron HCl (Zofran Inj) 4 mg Q6H PRN IV NAUSEA AND/OR VOMITING; Start at 21:00 Diagnostic Test (Pha) (Accucheck) 1 ea 02 XX Last administered on 04/08/16 01: 59; Admin Dose 1 EA; Start 04/05/16 at 02:00 Miscellaneous Information 1 ea NOTE XX ; Start 04/04/16 at 22:30 Glucose (Glutose) 15 gm Q15M PRN PO DECREASED GLUCOSE; Start 04/04/16 at 22:30 Glucose (Glutose) 22.5 gm Q15M PRN PO DECREASED GLUCOSE; Start 04/04/16 at 22: 30 Dextrose (D50w Syringe) 25 ml Q15M PRN IV DECREASED GLUCOSE Last administered on 04/06/16 18:07; Admin Dose 25 ML; Start 04/04/16 at 22:30 Dextrose (D50w Syringe) 50 ml Q15M PRN IV DECREASED GLUCOSE; Start 04/04/16 at 22:30 Glucagon (Glucagen) 1 mg Q15M PRN IM DECREASED GLUCOSE; Start 04/04/16 at 22:30 Glucose 15 gm 15 gm Q15M PRN BUCCAL DECREASED GLUCOSE; Start 04/04/16 at 22:30 Sodium Chloride (NS) 1,000 ml @ 100 mls/hr Q10H IV Last administered on 15:32; Admin Dose 100 MLS/HR; Start 04/04/16 at 23:00 Insulin Glargine (Lantus) 25 unit HS SC Last administered on 04/07/16 20:54; Admin Dose 25 UNIT; Start 04/04/16 at 21:00 Levofloxacin (Levaquin) 500 mg DAILY@06 PO Last administered on 04/08/16 05:25 ; Admin Dose 500 MG; Start 04/06/16 at 06:00 Ferrous Sulfate (Ferrous Sulfate (Ec)) 325 mg DAILY PO Last administered on 04/08 08:34; Admin Dose 325 MG; Start 04/07/16 at 09:00 Ascorbic Acid (Vitamin C) 500 mg DAILY PO Last administered on 04/08/16 08:34; Admin Dose 500 MG; Start 04/07/16 at 09:00 Oxycodone/ Acetaminophen 1 tab 1 tab Q4H PRN PO PAIN Last administered on 15:30; Admin Dose 1 TAB; Start 04/06/16 at 22:00 Vancomycin HCl/ Sodium Chloride (Vancocin/NS) 150 ml @ 75 mls/hr Q12H IVPB ; Start 04/08/16 at 20:00 BHARTI HENRY MD Apr 08, 2016 16:49
[2016-04-08 20:18] VITALS: BP 160/76; RESP 16
[2016-04-08] MEDS: VANCOMYCIN 750 MG in SOD CHLORIDE 0.9% 150 ML IVPB SCH (21:57)
[2016-04-08] MEDS: INSULIN GLARGINE [LANtus] 3 ML PEN SC SCH (21:59)
--- NOTE | 2016-04-08 23:28 | PN ---
Date/Time of Note Date/Time of Note DATE: 04/08/16 TIME: 23:28 Assessment/Plan Lines/Catheters IV Catheter Type (from [facility]): Peripheral IV Xavier in Place (from [facility]): No Assessment/Plan Problems: (1) Diabetes, polyneuropathy Status: Chronic Qualifiers: Diabetes mellitus type: type 2 Qualified Code: E11.42 - Diabetic polyneuropathy associated with type 2 diabetes mellitus (2) Peripheral vascular disease Status: Chronic (3) Non-pressure chronic ulcer of other part of right foot with fat layer exposed Status: Chronic (4) Charcot's joint, left ankle and foot Status: Chronic (5) Charcot's joint, right ankle and foot Status: Chronic (6) Non-pressure chronic ulcer of other part of right foot with necrosis of muscle Status: Chronic (7) Essential hypertension Status: Chronic (8) Hyperlipidemia Status: Chronic Qualifiers: Hyperlipidemia type: pure hypercholesterolemia Qualified Code: E78.00 - Pure hypercholesterolemia (9) Foot ulcer due to secondary DM Status: Acute (10) Iron deficiency anemia Status: Chronic Qualifiers: Iron deficiency anemia type: chronic blood loss Qualified Code: D50.0 - Iron deficiency anemia due to chronic blood loss Assessment/Plan Patient will be discharged home with daily dressing changes to be done by visiting nurse service. Patient has severe deformities of both feet and has neuropathy. His wounds are difficult to treat secondary to the location that they are in. Patient will worsen his condition soon as he starts ambulating. Patient is currently also under care of vascular surgery. I will coordinate my care with the vascular surgeon and both of us will see the patient at the amputation prevention center. Subjective 24 Hr Interval Summary Patient was seen at bedside. Postop day 2; status post excisional debridement of necrotic open wound of the left foot, excisional debridement of necrotic open wound of right foot. Reports feeling much better. Denies fever and chills. Denies pain in his feet. No other complaints reported by the patient. Constitutional: no complaints Pain Control: well controlled Exam/Review of Systems Vital Signs Vitals Vital Signs Date Time Temp Pulse Resp B/P Pulse Ox O2 Delivery O2 Flow Rate FiO2 04/14/16 07:35 98.6 80 20 130/62 96 Intake and Output 04/13/16 04/13/16 04/14/16 14:59 22:59 06:59 Intake Total 150 ml 2810 ml 1500 ml Output Total 2000 ml 1910 ml Balance 150 ml 810 ml -410 ml Exam Free Text/Dictation Patient is in no acute distress. Bandages were removed from both feet. Significant improvement noted on open wound of bilateral feet. Specially the left foot shows good granulation tissue at the base with no pus and no bleeding. Nontender to palpation. Patient has severe deformity of bilateral feet. Continues to have decreased sensation to sharp dull vibratory and temperature stimuli. Contracted toes noted. Labs reviewed. Results Result Diagram: 04/14/16 1118 04/14/16 0435 LUIS MAI DPM Apr 08, 2016 23:28
[2016-04-09] MEDS: ACCUCHECK XX SCH (02:00)
[2016-04-09] MEDS: SOD CHLORIDE 0.9% 1,000 ML IV SCH ×3 (03:00→21:14)
[2016-04-09] MEDS: PANTOPRAZOLE (EC) 40 MG TAB PO SCH (05:50)
[2016-04-09] MEDS: LEVOFLOXACIN 500 MG TAB PO SCH (05:50)
[2016-04-09 07:19] LABS: CREATININE 1.19 mg/dl (0.61-1.24)
[2016-04-09] MEDS: INSULIN ASPART [NOVOLOG] 3 ML PEN SC SCH ×7 (07:35→21:23)
[2016-04-09 07:58] VITALS: BP 144/70; RESP 18
[2016-04-09] MEDS: VANCOMYCIN 750 MG in SOD CHLORIDE 0.9% 150 ML IVPB SCH ×2 (08:03→21:29)
[2016-04-09] MEDS: FERROUS SULFATE (EC) 325 MG TAB PO SCH (08:55)
[2016-04-09] MEDS: ASCORBIC ACID 500 MG TAB PO SCH (08:55)
[2016-04-09] MEDS: ENOXAPARIN 30 MG/0.3 ML SYG SC SCH (09:00)
--- NOTE | 2016-04-09 14:20 | PN ---
Date/Time of Note Date/Time of Note DATE: 04/09/16 TIME: 14:09 Assessment/Plan VTE Prophylaxis VTE Prophylaxis Intervention: LMWH Lines/Catheters IV Catheter Type (from [facility]): Peripheral IV Urinary Cath still in place: No Assessment/Plan Problems: (1) Peripheral vascular disease Status: Chronic Comment: Patient has been under the care of and is relatively stable. However given the combination of vascular disease with a neuropathy in the Charcot joints long-term prognosis has its finite limits (2) Non-pressure chronic ulcer of other part of right foot with fat layer exposed Status: Chronic Comment: As per [facility] and Dr. Pritchard. As above due to the vascular disease and neuropathy long-term prognosis has finite limits (3) Charcot's joint, left ankle and foot Comment: As above (4) Charcot's joint, right ankle and foot Comment: As above (5) Essential hypertension Status: Chronic Comment: Well-controlled. (6) Hyperlipidemia Status: Chronic Comment: On treatment. To try and mitigate vascular risk Qualifiers: Hyperlipidemia type: pure hypercholesterolemia Qualified Code: E78.00 - Pure hypercholesterolemia (7) Diabetes, polyneuropathy Status: Chronic Comment: Continue with care and optimize sugars Qualifiers: Diabetes mellitus type: type 2 Qualified Code: E11.42 - Diabetic polyneuropathy associated with type 2 diabetes mellitus Subjective 24 Hr Interval Summary Free Text/Dictation Patient's initial response is when can I go home Constitutional: no complaints (Denies fever chills or sweats) Respiratory: no complaints Cardiovascular: no complaints Gastrointestinal: no complaints Genitourinary: no complaints Musculoskeletal: no complaints Exam/Review of Systems Vital Signs Vitals Vital Signs Date Time Temp Pulse Resp B/P Pulse Ox O2 Delivery O2 Flow Rate FiO2 04/09/16 07:58 98.5 85 18 144/70 95 04/08/16 11:19 Room Air Intake and Output 04/08/16 04/08/16 04/09/16 15:00 23:00 07:00 Intake Total 900 ml 1370 ml Output Total 1200 ml 1600 ml Balance -300 ml -230 ml Exam Constitutional: alert, oriented Respiratory: clear to auscultation, normal air movement Cardiovascular: nl pulses, regular rate and rhythm Gastrointestinal: nl liver, spleen, non-tender, soft Results Result Diagram: 04/07/16 0530 04/09/16 0554 Results 24 hrs Laboratory Tests Test 04/08/16 17:26 04/08/16 20:59 04/09/16 05:54 04/09/16 07:52 Bedside Glucose 118 138 119 Blood Urea Nitrogen 12 Creatinine 1.19 Test 04/09/16 11:57 Bedside Glucose 228 H Medications Medications Current Medications Acetaminophen (Tylenol Tab) 650 mg Q6H PRN PO PAIN AND OR ELEVATED TEMP; Start 04/04/16 at 21:00 Bisacodyl (Dulcolax) 10 mg DAILY PRN PO CONSTIPATION; Start 04/04/16 at 21:00 Docusate Sodium (Colace) 100 mg BID PRN PO CONSTIPATION Last administered on 22:04; Admin Dose 100 MG; Start 04/04/16 at 21:00 Enoxaparin Sodium (Lovenox) 30 mg DAILY SC Last administered on 04/09/16 09:00 ; Admin Dose 30 MG; Start 04/05/16 at 09:00 Acetaminophen/ Hydrocodone Bitart ([place] (5/325)) 1 tab Q6H PRN PO PAIN Last administered on 04/08/16 12:14; Admin Dose 1 TAB; Start 04/04/16 at 21:00 Pantoprazole (Protonix Tab) 40 mg DAILY@06 PO Last administered on 04/09/16 05: 50; Admin Dose 40 MG; Start 04/05/16 at 06:00 Ondansetron HCl (Zofran Inj) 4 mg Q6H PRN IV NAUSEA AND/OR VOMITING; Start at 21:00 Diagnostic Test (Pha) (Accucheck) 1 ea 02 XX Last administered on 04/08/16 01: 59; Admin Dose 1 EA; Start 04/05/16 at 02:00 Miscellaneous Information 1 ea NOTE XX ; Start 04/04/16 at 22:30 Glucose (Glutose) 15 gm Q15M PRN PO DECREASED GLUCOSE; Start 04/04/16 at 22:30 Glucose (Glutose) 22.5 gm Q15M PRN PO DECREASED GLUCOSE; Start 04/04/16 at 22: 30 Dextrose (D50w Syringe) 25 ml Q15M PRN IV DECREASED GLUCOSE Last administered on 04/06/16 18:07; Admin Dose 25 ML; Start 04/04/16 at 22:30 Dextrose (D50w Syringe) 50 ml Q15M PRN IV DECREASED GLUCOSE; Start 04/04/16 at 22:30 Glucagon (Glucagen) 1 mg Q15M PRN IM DECREASED GLUCOSE; Start 04/04/16 at 22:30 Glucose 15 gm 15 gm Q15M PRN BUCCAL DECREASED GLUCOSE; Start 04/04/16 at 22:30 Sodium Chloride (NS) 1,000 ml @ 100 mls/hr Q10H IV Last administered on 08:04; Admin Dose 100 MLS/HR; Start 04/04/16 at 23:00 Insulin Glargine (Lantus) 25 unit HS SC Last administered on 04/08/16 21:59; Admin Dose 25 UNIT; Start 04/04/16 at 21:00 Levofloxacin (Levaquin) 500 mg DAILY@06 PO Last administered on 04/09/16 05:50 ; Admin Dose 500 MG; Start 04/06/16 at 06:00 Ferrous Sulfate (Ferrous Sulfate (Ec)) 325 mg DAILY PO Last administered on 04/09 08:55; Admin Dose 325 MG; Start 04/07/16 at 09:00 Ascorbic Acid (Vitamin C) 500 mg DAILY PO Last administered on 04/09/16 08:55; Admin Dose 500 MG; Start 04/07/16 at 09:00 Oxycodone/ Acetaminophen 1 tab 1 tab Q4H PRN PO PAIN Last administered on 15:30; Admin Dose 1 TAB; Start 04/06/16 at 22:00 Vancomycin HCl/ Sodium Chloride (Vancocin/NS) 150 ml @ 75 mls/hr Q12H IVPB Last administered on 04/09/16 08:03; Admin Dose 75 MLS/HR; Start 04/08/16 at 20: 00 Miscellaneous Information VANCOMYCIN TROUGH 04/10 AT 0700 ONCE ONCE XX ; Start at 07:00; Stop 04/10/16 at 07:01 Ferric Sodium Gluconate Complex/ Sodium Chloride (Ferrlecit/NS) 110 ml @ 100 mls/hr ONCE ONCE IVPB ; Start 04/09/16 at 15:00; Stop 04/09/16 at 16:05 JACOB BELLA MD Apr 09, 2016 14:19
[2016-04-09] MEDS ORDERED: SOD FERRIC GLUC COMPLX 125 MG in SOD CHLORIDE 0.9% 100 ML IVPB ONE (15:00)
--- NOTE | 2016-04-09 17:59 | RADRPT ---
PROCEDURE: MRI OF THE LEFT ANKLE CLINICAL INDICATION: Left ankle pain, concern for osteomyelitis TECHNIQUE: Multiple MRI images were obtained utilizing multiple sequences in multiple planes utiliz ing multiple pulse sequences. Images were interpreted on a high-resolution PACS system. COMPARISON: Radiographs of the left foot dated April 04, 2016 and MRI of the right ankle 2016 FINDINGS: There is a large plantar - lateral skin ulceration of the midfoot, with osteomyelitis of the cuboid and the base of the fifth metatarsal (sagittal 9 and axial 29). There is also osteomyelitis of the a nterior calcaneus. There is also osteomyelitis at the base of the fourth metatarsal. There is also fluid at the calcaneocuboid joint and the fifth tarsometatarsal joint suggesting possible septic art hritis. There is overlying soft tissue swelling and phlegmonous changes without discrete drainable fluid col lection identified. There is no acute fracture. There is background severe degenerative changes / or Charcot arthropathy. There is no evidence of tendon tear. There is intrinsic foot muscle atrophy and edema. IMPRESSION: 1. Large plantar - lateral skin ulceration nearly extending to bone with osteomyelitis of the anteri or calcaneus, cuboid, the residual fifth metatarsal base, and the fourth metatarsal base. Calcaneoc uboid and fourth and fifth tarsometatarsal joint fluid also suggest septic arthritis. 2. Surrounding plantar and lateral soft tissue swelling and phlegmonous changes suggestive of cellul itis without drainable fluid collection. 3. Background severe degenerative and / or Charcot changes at the midfoot. 4. Intrinsic foot muscle atrophy and edema, possibly related to diabetic microangiopathy. RPTAT: UU .Brennan Walsh MD, Date Time Electronically viewed and signed by .Brennan Walsh MD, on 04/09/2016 17:59 .K/
--- NOTE | 2016-04-09 18:06 | RADRPT ---
PROCEDURE: MRI OF THE RIGHT ANKLE CLINICAL INDICATION: Right ankle pain, concern for osteomyelitis TECHNIQUE: Multiple MRI images were obtained utilizing multiple sequences in multiple planes. Image s were interpreted on a high-resolution PACS system. COMPARISON: Radiographs of the right ankle and right foot dated April 04, 2016 FINDINGS: There is a plantar - lateral skin ulceration with evidence of osteomyelitis of the residual fifth me tatarsal (sagittal 23 and axial 33), sparing the proximal 1 cm of the base. Note is also made of ab normal marrow signal involving the first metatarsal proximally at the edge of the field of view (sag ittal 8), possibly reflective of osteomyelitis at this location as well. No additional osteomyeliti s is seen. There is chronic degenerative change of the midfoot with chronic cysts and / or Charcot arthropathy. There is midfoot collapse. There is intrinsic foot muscle atrophy and edema. There is no evidence of tendon tear. There is no drainable fluid collection. IMPRESSION: 1. Plantar - lateral skin ulceration with osteomyelitis of the residual shaft of the fifth metatars al. 2. Abnormal marrow signal involving the first metatarsal shaft, at the edge of the field of view an d incompletely assessed, osteomyelitis at this location is not excluded, and should be correlated wi th direct inspection for any adjacent skin ulceration. 3. Diffuse subcutaneous soft tissue swelling without drainable fluid collection. 4. Background degenerative and / or Charcot changes throughout the midfoot. 5. Intrinsic foot muscle atrophy and edema, nonspecific, query diabetic microangiopathy. RPTAT: UU .Brennan Walsh MD, MD Date Time Electronically viewed and signed by .Brennan Walsh MD, on 04/09/2016 18:05 .K/
--- NOTE | 2016-04-09 19:42 | CONS ---
Date/Time of Note Date/Time of Note DATE: 04/09/16 TIME: 19:39 Assessment/Plan Assessment/Plan Chief Complaint/Hosp Course SUBJECTIVE: No acute changes. The patient is alert, feels good, looks comfortable, no fevers. MICROBIOLOGY: Blood culture on admission grew staph species 1 out of 2 sets. Left foot wound culture growing Proteus mirabilis and Enterococcus species. Intraoperative cultures also growing alpha hemolytic strep, MRSA, enterococcus species and Proteus mirabilis. ANTIMICROBIALS: The patient is on IV vancomycin and Levaquin. PHYSICAL EXAMINATION: GENERAL: Well-developed elderly man who is alert, in no distress. HEENT: Head atraumatic, normocephalic. Sclerae anicteric. Buccal mucosa pink. NECK: Supple, trachea midline. CHEST: Rise symmetrical. Breath sounds clear. HEART: S1, S2. ABDOMEN: Soft, bowel tones present. EXTREMITIES: With bilateral feet dressing intact. ASSESSMENT: 1. Bilateral lower extremity infected diabetic ulceration with evidence of OM per MRI==> s/p debridement 2. Diabetes. 3. Staphylococcus bacteremia cw contaminant. 4. Peripheral vascular disease secondary to diabetic neuropathy. PLAN: The patient remains stable, will need to be on IV Vanco or Daptomycin for 6-8 weeks, also on PO Levaquin, consider PICC and involvement of CM for post discharge arrangements DW staff Problems: Consultation Date/Type/Reason Admit Date/Time Apr 04, 2016 at 19:05 Type of Consultation: id [id number] HR Interval Summary Constitutional: no complaints Exam/Review of Systems Vital Signs Vitals Vital Signs Date Time Temp Pulse Resp B/P Pulse Ox O2 Delivery O2 Flow Rate FiO2 04/09/16 07:58 98.5 85 18 144/70 95 04/08/16 11:19 Room Air Intake and Output 04/08/16 04/08/16 04/09/16 15:00 23:00 07:00 Intake Total 900 ml 1370 ml Output Total 1200 ml 1600 ml Balance -300 ml -230 ml Results Result Diagram: 04/07/16 0530 04/09/16 0554 Results 24 hrs Laboratory Tests Test 04/08/16 20:59 04/09/16 05:54 04/09/16 07:52 04/09/16 11:57 Bedside Glucose 138 119 228 H Blood Urea Nitrogen 12 Creatinine 1.19 Hepatitis B Surface Antigen NEGATIVE Hepatitis C Antibody NEGATIVE Thyroid Stimulating Hormone (TSH) 3.870 Test 04/09/16 17:02 Bedside Glucose 172 Medications Medications Current Medications Acetaminophen (Tylenol Tab) 650 mg Q6H PRN PO PAIN AND OR ELEVATED TEMP; Start 04/04/16 at 21:00 Bisacodyl (Dulcolax) 10 mg DAILY PRN PO CONSTIPATION; Start 04/04/16 at 21:00 Docusate Sodium (Colace) 100 mg BID PRN PO CONSTIPATION Last administered on 22:04; Admin Dose 100 MG; Start 04/04/16 at 21:00 Enoxaparin Sodium (Lovenox) 30 mg DAILY SC Last administered on 04/09/16 09:00 ; Admin Dose 30 MG; Start 04/05/16 at 09:00 Acetaminophen/ Hydrocodone Bitart ([place] (5/325)) 1 tab Q6H PRN PO PAIN Last administered on 04/08/16 12:14; Admin Dose 1 TAB; Start 04/04/16 at 21:00 Pantoprazole (Protonix Tab) 40 mg DAILY@06 PO Last administered on 04/09/16 05: 50; Admin Dose 40 MG; Start 04/05/16 at 06:00 Ondansetron HCl (Zofran Inj) 4 mg Q6H PRN IV NAUSEA AND/OR VOMITING; Start at 21:00 Diagnostic Test (Pha) (Accucheck) 1 ea 02 XX Last administered on 04/08/16 01: 59; Admin Dose 1 EA; Start 04/05/16 at 02:00 Miscellaneous Information 1 ea NOTE XX ; Start 04/04/16 at 22:30 Glucose (Glutose) 15 gm Q15M PRN PO DECREASED GLUCOSE; Start 04/04/16 at 22:30 Glucose (Glutose) 22.5 gm Q15M PRN PO DECREASED GLUCOSE; Start 04/04/16 at 22: 30 Dextrose (D50w Syringe) 25 ml Q15M PRN IV DECREASED GLUCOSE Last administered on 04/06/16 18:07; Admin Dose 25 ML; Start 04/04/16 at 22:30 Dextrose (D50w Syringe) 50 ml Q15M PRN IV DECREASED GLUCOSE; Start 04/04/16 at 22:30 Glucagon (Glucagen) 1 mg Q15M PRN IM DECREASED GLUCOSE; Start 04/04/16 at 22:30 Glucose 15 gm 15 gm Q15M PRN BUCCAL DECREASED GLUCOSE; Start 04/04/16 at 22:30 Sodium Chloride (NS) 1,000 ml @ 100 mls/hr Q10H IV Last administered on 08:04; Admin Dose 100 MLS/HR; Start 04/04/16 at 23:00 Insulin Glargine (Lantus) 25 unit HS SC Last administered on 04/08/16 21:59; Admin Dose 25 UNIT; Start 04/04/16 at 21:00 Levofloxacin (Levaquin) 500 mg DAILY@06 PO Last administered on 04/09/16 05:50 ; Admin Dose 500 MG; Start 04/06/16 at 06:00 Ferrous Sulfate (Ferrous Sulfate (Ec)) 325 mg DAILY PO Last administered on 04/09 08:55; Admin Dose 325 MG; Start 04/07/16 at 09:00 Ascorbic Acid (Vitamin C) 500 mg DAILY PO Last administered on 04/09/16 08:55; Admin Dose 500 MG; Start 04/07/16 at 09:00 Oxycodone/ Acetaminophen 1 tab 1 tab Q4H PRN PO PAIN Last administered on 15:30; Admin Dose 1 TAB; Start 04/06/16 at 22:00 Vancomycin HCl/ Sodium Chloride (Vancocin/NS) 150 ml @ 75 mls/hr Q12H IVPB Last administered on 04/09/16 08:03; Admin Dose 75 MLS/HR; Start 04/08/16 at 20: 00 Miscellaneous Information (*Rx Drug Level Order Reminder*) VANCOMYCIN TROUGH 5 AT 0700 ONCE ONCE XX ; Start 04/10/16 at 07:00; Stop 04/10/16 at 07:01 Cilostazol (Pletal) 100 mg BID PO ; Start 04/09/16 at 21:00 MITZY GOODMAN NP Apr 09, 2016 19:42
[2016-04-09 20:00] VITALS: BP 130/60; PULSE 83; RESP 20
--- NOTE | 2016-04-09 20:33 | PN ---
Date/Time of Note Date/Time of Note DATE: 04/09/16 TIME: 20:32 Assessment/Plan Lines/Catheters IV Catheter Type (from [facility]): Peripheral IV Xavier in Place (from [facility]): No Assessment/Plan Problems: (1) Foot ulcer due to secondary DM Status: Acute (2) Peripheral vascular disease Status: Chronic (3) Diabetes, polyneuropathy Status: Chronic Qualifiers: Diabetes mellitus type: type 2 Qualified Code: E11.42 - Diabetic polyneuropathy associated with type 2 diabetes mellitus (4) Charcot's joint, right ankle and foot Status: Chronic (5) Charcot's joint, left ankle and foot Status: Chronic (6) Non-pressure chronic ulcer of other part of right foot with necrosis of muscle Status: Chronic Assessment/Plan Changed bandages today. Patient may be discharged home with follow-up at the clinic next week. Continue nonweightbearing bilateral feet. Follow-up with vascular surgery. Subjective 24 Hr Interval Summary Patient was seen and examined at bedside. He does not have any complaints. Denies fever and chills. Constitutional: no complaints Pain Control: well controlled Exam/Review of Systems Vital Signs Vitals Vital Signs Date Time Temp Pulse Resp B/P Pulse Ox O2 Delivery O2 Flow Rate FiO2 04/14/16 07:35 98.6 80 20 130/62 96 Intake and Output 04/13/16 04/13/16 04/14/16 14:59 22:59 06:59 Intake Total 150 ml 2810 ml 1500 ml Output Total 2000 ml 1910 ml Balance 150 ml 810 ml -410 ml Exam Free Text/Dictation Bilateral feet were examined which showed improvement. Open wound resident on both feet with 100% granulation tissue. There is no edema no erythema noted. Non-tender to exam. No other changes noted on examination today. Results Result Diagram: 04/14/16 1118 04/14/16 0435 LUIS MAI DPM Apr 09, 2016 20:33
[2016-04-09 20:37] VITALS: BP 130/60; RESP 20
[2016-04-09] MEDS: CILOSTAZOL 100 MG TAB PO SCH (21:16)
[2016-04-09] MEDS: INSULIN GLARGINE [LANtus] 3 ML PEN SC SCH (21:22)
[2016-04-09] MEDS: HYDROCODONE/APAP (5/325) TAB PO PRN (21:27)
[2016-04-10] MEDS: ACCUCHECK XX SCH (02:00)
[2016-04-10] MEDS: LEVOFLOXACIN 500 MG TAB PO SCH (05:19)
[2016-04-10] MEDS: PANTOPRAZOLE (EC) 40 MG TAB PO SCH (05:19)
[2016-04-10 07:26] LABS: BASOPHILS % 0.5 % (0.0-2.0); EOSINOPHILS # 0.3 10^3/ul (0.0-0.5); EOSINOPHILS % 3.5 % (0.0-7.0); HEMATOCRIT 26.8 % (42.0-52.0); LYMPHOCYTES # 1.6 10^3/ul (0.8-2.9); LYMPHOCYTES % 19.1 % (15.0-51.0); MEAN CORPUSCULAR HEMOGLOBIN 28.7 pg (29.0-33.0); MEAN CORPUSCULAR HGB CONC 33.5 g/dl (32.0-37.0); MEAN CORPUSCULAR VOLUME 85.8 fl (82.0-101.0); MEAN PLATELET VOLUME 6.5 fl (7.4-10.4); MONOCYTE # 0.7 10^3/ul (0.3-0.9); NEUTROPHIL # 5.8 10^3/ul (1.6-7.5); NEUTROPHILS % 68.9 % (39.0-77.0); PLATELET COUNT 667 10^3/UL (140-440); RED BLOOD COUNT 3.12 10^6/ul (4.70-6.10); RED CELL DISTRIBUTION WIDTH 13.3 % (11.5-14.5); UNCORRECTED WBC 8.4 10^3/ul (4.8-10.8); WHITE BLOOD COUNT 8.4 10^3/ul (4.8-10.8)
[2016-04-10 07:27] LABS: CONDITION 1
[2016-04-10 07:42] LABS: POTASSIUM 3.9 mmol/L (3.5-5.1)
[2016-04-10 07:44] LABS: CREATININE 1.21 mg/dl (0.61-1.24)
[2016-04-10 07:45] LABS: CALCIUM 8.4 mg/dl (8.4-10.2)
[2016-04-10 07:58] VITALS: BP 131/79; RESP 20
[2016-04-10] MEDS: INSULIN ASPART [NOVOLOG] 3 ML PEN SC SCH ×7 (08:00→20:10)
[2016-04-10] MEDS: SOD CHLORIDE 0.9% 1,000 ML IV SCH (08:19)
[2016-04-10] MEDS: FERROUS SULFATE (EC) 325 MG TAB PO SCH (08:20)
[2016-04-10] MEDS: ASCORBIC ACID 500 MG TAB PO SCH (08:20)
[2016-04-10] MEDS: CILOSTAZOL 100 MG TAB PO SCH ×2 (08:20→20:10)
[2016-04-10] MEDS: ENOXAPARIN 30 MG/0.3 ML SYG SC SCH (08:21)
[2016-04-10] MEDS: VANCOMYCIN 750 MG in SOD CHLORIDE 0.9% 150 ML IVPB SCH ×2 (09:28→20:05)
--- NOTE | 2016-04-10 12:52 | PN ---
Date/Time of Note Date/Time of Note DATE: 04/10/16 TIME: 12:50 Assessment/Plan VTE Prophylaxis VTE Prophylaxis Intervention: LMWH Lines/Catheters IV Catheter Type (from [facility]): Peripheral IV Urinary Cath still in place: No Assessment/Plan Problems: (1) Foot ulcer due to secondary DM Status: Acute Comment: He has had debridement and will need long-term antibiotic therapy as per infectious disease and podiatry recommendations. Will make arrangements for a PICC line and placement of attempt to obtain the maximum beneficial result (2) Hyperlipidemia Status: Chronic Comment: Remains on appropriate therapy Qualifiers: Hyperlipidemia type: pure hypercholesterolemia Qualified Code: E78.00 - Pure hypercholesterolemia (3) Essential hypertension Status: Chronic Comment: Good control (4) Iron deficiency anemia Status: Chronic Comment: Replete with 1 more dose IV Qualifiers: Iron deficiency anemia type: chronic blood loss Qualified Code: D50.0 - Iron deficiency anemia due to chronic blood loss (5) Charcot's joint, left ankle and foot Status: Chronic Comment: As per podiatry (6) Charcot's joint, right ankle and foot Status: Chronic Comment: As per podiatry (7) Diabetes, polyneuropathy Status: Chronic Comment: Sugar control is adequate. Continue care Qualifiers: Diabetes mellitus type: type 2 Qualified Code: E11.42 - Diabetic polyneuropathy associated with type 2 diabetes mellitus Subjective 24 Hr Interval Summary Free Text/Dictation Patient eating lunch without complaints Constitutional: no complaints (Denies fevers chills or sweats) Respiratory: no complaints (Denies shortness of breath) Cardiovascular: no complaints (Denies chest pain potation) Gastrointestinal: no complaints (Denies nausea or vomiting) Exam/Review of Systems Vital Signs Vitals Vital Signs Date Time Temp Pulse Resp B/P Pulse Ox O2 Delivery O2 Flow Rate FiO2 04/10/16 07:58 98.4 84 20 131/79 96 04/09/16 20:00 Room Air Intake and Output 04/09/16 04/09/16 04/10/16 15:00 23:00 07:00 Intake Total 150 ml 640 ml 750 ml Output Total 950 ml Balance 150 ml -310 ml 750 ml Exam Constitutional: alert, oriented Respiratory: clear to auscultation, normal air movement Cardiovascular: nl pulses, regular rate and rhythm Gastrointestinal: nl liver, spleen, non-tender, soft Results Result Diagram: 04/10/16 0652 04/10/16 0652 Results 24 hrs Laboratory Tests Test 04/09/16 17:02 04/09/16 21:18 04/10/16 02:34 04/10/16 06:05 Bedside Glucose 172 203 163 Vancomycin Level Trough 14.4 Test 04/10/16 06:52 04/10/16 08:15 04/10/16 12:29 Anion Gap 12 Basophils # 0.0 Basophils % 0.5 Blood Morphology Comment Blood Urea Nitrogen 12 Calcium Level 8.4 Carbon Dioxide Level 31 Chloride Level 100 Creatinine 1.21 Eosinophils # 0.3 Eosinophils % 3.5 Glucose Level 97 Hematocrit 26.8 L Hemoglobin 9.0 L Lymphocytes # 1.6 Lymphocytes % 19.1 Mean Corpuscular Hemoglobin 28.7 L Mean Corpuscular Hemoglobin Concent 33.5 Mean Corpuscular Volume 85.8 Mean Platelet Volume 6.5 L Monocytes # 0.7 Monocytes % 8.0 Neutrophils # 5.8 Neutrophils % 68.9 Nucleated Red Blood Cells # 0.0 Nucleated Red Blood Cells % 0.0 Platelet Count 667 #H Potassium Level 3.9 Red Blood Count 3.12 L Red Cell Distribution Width 13.3 Sodium Level 139 White Blood Count 8.4 Bedside Glucose 99 104 Medications Medications Current Medications Acetaminophen (Tylenol Tab) 650 mg Q6H PRN PO PAIN AND OR ELEVATED TEMP; Start 04/04/16 at 21:00 Bisacodyl (Dulcolax) 10 mg DAILY PRN PO CONSTIPATION; Start 04/04/16 at 21:00 Docusate Sodium (Colace) 100 mg BID PRN PO CONSTIPATION Last administered on 22:04; Admin Dose 100 MG; Start 04/04/16 at 21:00 Enoxaparin Sodium (Lovenox) 30 mg DAILY SC Last administered on 04/10/16 08:21 ; Admin Dose 30 MG; Start 04/05/16 at 09:00 Acetaminophen/ Hydrocodone Bitart ([place] (5/325)) 1 tab Q6H PRN PO PAIN Last administered on 04/09/16 21:27; Admin Dose 1 TAB; Start 04/04/16 at 21:00 Pantoprazole (Protonix Tab) 40 mg DAILY@06 PO Last administered on 04/10/16 05: 19; Admin Dose 40 MG; Start 04/05/16 at 06:00 Ondansetron HCl (Zofran Inj) 4 mg Q6H PRN IV NAUSEA AND/OR VOMITING; Start at 21:00 Diagnostic Test (Pha) (Accucheck) 1 ea 02 XX Last administered on 04/08/16 01: 59; Admin Dose 1 EA; Start 04/05/16 at 02:00 Miscellaneous Information 1 ea NOTE XX ; Start 04/04/16 at 22:30 Glucose (Glutose) 15 gm Q15M PRN PO DECREASED GLUCOSE; Start 04/04/16 at 22:30 Glucose (Glutose) 22.5 gm Q15M PRN PO DECREASED GLUCOSE; Start 04/04/16 at 22: 30 Dextrose (D50w Syringe) 25 ml Q15M PRN IV DECREASED GLUCOSE Last administered on 04/06/16 18:07; Admin Dose 25 ML; Start 04/04/16 at 22:30 Dextrose (D50w Syringe) 50 ml Q15M PRN IV DECREASED GLUCOSE; Start 04/04/16 at 22:30 Glucagon (Glucagen) 1 mg Q15M PRN IM DECREASED GLUCOSE; Start 04/04/16 at 22:30 Glucose 15 gm 15 gm Q15M PRN BUCCAL DECREASED GLUCOSE; Start 04/04/16 at 22:30 Sodium Chloride (NS) 1,000 ml @ 100 mls/hr Q10H IV Last administered on 08:19; Admin Dose 100 MLS/HR; Start 04/04/16 at 23:00 Insulin Glargine (Lantus) 25 unit HS SC Last administered on 04/09/16 21:22; Admin Dose 25 UNIT; Start 04/04/16 at 21:00 Levofloxacin (Levaquin) 500 mg DAILY@06 PO Last administered on 04/10/16 05:19 ; Admin Dose 500 MG; Start 04/06/16 at 06:00 Ferrous Sulfate (Ferrous Sulfate (Ec)) 325 mg DAILY PO Last administered on 04/10 08:20; Admin Dose 325 MG; Start 04/07/16 at 09:00 Ascorbic Acid (Vitamin C) 500 mg DAILY PO Last administered on 04/10/16 08:20; Admin Dose 500 MG; Start 04/07/16 at 09:00 Oxycodone/ Acetaminophen 1 tab 1 tab Q4H PRN PO PAIN Last administered on 15:30; Admin Dose 1 TAB; Start 04/06/16 at 22:00 Vancomycin HCl/ Sodium Chloride (Vancocin/NS) 150 ml @ 75 mls/hr Q12H IVPB Last administered on 04/10/16 09:28; Admin Dose 75 MLS/HR; Start 04/08/16 at 20: 00 Cilostazol (Pletal) 100 mg BID PO Last administered on 04/10/16 08:20; Admin Dose 100 MG; Start 04/09/16 at 21:00 Lidocaine (Xylocaine 1% (Mdv) 20 ml) 20 ml ONCE ONCE SC ; Start 04/10/16 at 13: 00; Stop 04/10/16 at 13:01; Status JACOB RENO MD Apr 10, 2016 12:52
[2016-04-10] MEDS ORDERED: LIDOCAINE 1% (MDV) 20 ML INJ SC ONE (13:00)
[2016-04-10] MEDS: SOD FERRIC GLUC COMPLX 125 MG in SOD CHLORIDE 0.9% 100 ML IVPB SCH (14:52)
--- NOTE | 2016-04-10 18:00 | CONS ---
Date/Time of Note Date/Time of Note DATE: 04/10/16 TIME: 17:59 Assessment/Plan Assessment/Plan Chief Complaint/Hosp Course SUBJECTIVE: No acute changes. The patient is alert, feels good, looks comfortable, no fevers. MICROBIOLOGY: Blood culture on admission grew staph species 1 out of 2 sets. Left foot wound culture growing Proteus mirabilis and Enterococcus species. Intraoperative cultures also growing alpha hemolytic strep, MRSA, enterococcus species and Proteus mirabilis. ANTIMICROBIALS: The patient is on IV vancomycin and Levaquin. PHYSICAL EXAMINATION: GENERAL: Well-developed elderly man who is alert, in no distress. HEENT: Head atraumatic, normocephalic. Sclerae anicteric. Buccal mucosa pink. NECK: Supple, trachea midline. CHEST: Rise symmetrical. Breath sounds clear. HEART: S1, S2. ABDOMEN: Soft, bowel tones present. EXTREMITIES: With bilateral feet dressing intact. ASSESSMENT: 1. Bilateral lower extremity infected diabetic ulceration with evidence of OM per MRI==> s/p debridement 2. Diabetes. 3. Staphylococcus bacteremia cw contaminant. 4. Peripheral vascular disease secondary to diabetic neuropathy. PLAN: The patient remains stable, will need to be on IV Vanco or Daptomycin for 6-8 weeks, also on PO Levaquin, pending PICC placement DW staff Problems: Consultation Date/Type/Reason Admit Date/Time Apr 04, 2016 at 19:05 Type of Consultation: id Exam/Review of Systems Vital Signs Vitals Vital Signs Date Time Temp Pulse Resp B/P Pulse Ox O2 Delivery O2 Flow Rate FiO2 04/10/16 07:58 98.4 84 20 131/79 96 04/09/16 20:00 Room Air Intake and Output 04/09/16 04/09/16 04/10/16 15:00 23:00 07:00 Intake Total 150 ml 640 ml 750 ml Output Total 950 ml Balance 150 ml -310 ml 750 ml Results Result Diagram: 04/10/16 0652 04/10/16 0652 Results 24 hrs Laboratory Tests Test 04/09/16 21:18 04/10/16 02:34 04/10/16 06:05 04/10/16 06:52 Bedside Glucose 203 163 Vancomycin Level Trough 14.4 Anion Gap 12 Basophils # 0.0 Basophils % 0.5 Blood Morphology Comment Blood Urea Nitrogen 12 Calcium Level 8.4 Carbon Dioxide Level 31 Chloride Level 100 Creatinine 1.21 Eosinophils # 0.3 Eosinophils % 3.5 Glucose Level 97 Hematocrit 26.8 L Hemoglobin 9.0 L Lymphocytes # 1.6 Lymphocytes % 19.1 Mean Corpuscular Hemoglobin 28.7 L Mean Corpuscular Hemoglobin Concent 33.5 Mean Corpuscular Volume 85.8 Mean Platelet Volume 6.5 L Monocytes # 0.7 Monocytes % 8.0 Neutrophils # 5.8 Neutrophils % 68.9 Nucleated Red Blood Cells # 0.0 Nucleated Red Blood Cells % 0.0 Platelet Count 667 #H Potassium Level 3.9 Red Blood Count 3.12 L Red Cell Distribution Width 13.3 Sodium Level 139 White Blood Count 8.4 Test 04/10/16 08:15 04/10/16 12:29 04/10/16 17:16 Bedside Glucose 99 104 134 Medications Medications Current Medications Acetaminophen (Tylenol Tab) 650 mg Q6H PRN PO PAIN AND OR ELEVATED TEMP; Start 04/04/16 at 21:00 Bisacodyl (Dulcolax) 10 mg DAILY PRN PO CONSTIPATION; Start 04/04/16 at 21:00 Docusate Sodium (Colace) 100 mg BID PRN PO CONSTIPATION Last administered on 22:04; Admin Dose 100 MG; Start 04/04/16 at 21:00 Enoxaparin Sodium (Lovenox) 30 mg DAILY SC Last administered on 04/10/16 08:21 ; Admin Dose 30 MG; Start 04/05/16 at 09:00 Acetaminophen/ Hydrocodone Bitart ([place] (5/325)) 1 tab Q6H PRN PO PAIN Last administered on 04/09/16 21:27; Admin Dose 1 TAB; Start 04/04/16 at 21:00 Pantoprazole (Protonix Tab) 40 mg DAILY@06 PO Last administered on 04/10/16 05: 19; Admin Dose 40 MG; Start 04/05/16 at 06:00 Ondansetron HCl (Zofran Inj) 4 mg Q6H PRN IV NAUSEA AND/OR VOMITING; Start at 21:00 Diagnostic Test (Pha) (Accucheck) 1 ea 02 XX Last administered on 04/08/16 01: 59; Admin Dose 1 EA; Start 04/05/16 at 02:00 Miscellaneous Information 1 ea NOTE XX ; Start 04/04/16 at 22:30 Glucose (Glutose) 15 gm Q15M PRN PO DECREASED GLUCOSE; Start 04/04/16 at 22:30 Glucose (Glutose) 22.5 gm Q15M PRN PO DECREASED GLUCOSE; Start 04/04/16 at 22: 30 Dextrose (D50w Syringe) 25 ml Q15M PRN IV DECREASED GLUCOSE Last administered on 04/06/16 18:07; Admin Dose 25 ML; Start 04/04/16 at 22:30 Dextrose (D50w Syringe) 50 ml Q15M PRN IV DECREASED GLUCOSE; Start 04/04/16 at 22:30 Glucagon (Glucagen) 1 mg Q15M PRN IM DECREASED GLUCOSE; Start 04/04/16 at 22:30 Glucose 15 gm 15 gm Q15M PRN BUCCAL DECREASED GLUCOSE; Start 04/04/16 at 22:30 Sodium Chloride (NS) 1,000 ml @ 100 mls/hr Q10H IV Last administered on 08:19; Admin Dose 100 MLS/HR; Start 04/04/16 at 23:00 Insulin Glargine (Lantus) 25 unit HS SC Last administered on 04/09/16 21:22; Admin Dose 25 UNIT; Start 04/04/16 at 21:00 Levofloxacin (Levaquin) 500 mg DAILY@06 PO Last administered on 04/10/16 05:19 ; Admin Dose 500 MG; Start 04/06/16 at 06:00 Ferrous Sulfate (Ferrous Sulfate (Ec)) 325 mg DAILY PO Last administered on 04/10 08:20; Admin Dose 325 MG; Start 04/07/16 at 09:00 Ascorbic Acid (Vitamin C) 500 mg DAILY PO Last administered on 04/10/16 08:20; Admin Dose 500 MG; Start 04/07/16 at 09:00 Oxycodone/ Acetaminophen 1 tab 1 tab Q4H PRN PO PAIN Last administered on 15:30; Admin Dose 1 TAB; Start 04/06/16 at 22:00 Vancomycin HCl/ Sodium Chloride (Vancocin/NS) 150 ml @ 75 mls/hr Q12H IVPB Last administered on 04/10/16 09:28; Admin Dose 75 MLS/HR; Start 04/08/16 at 20: 00 Cilostazol 100 mg 100 mg BID PO Last administered on 04/10/16 08:20; Admin Dose 100 MG; Start 04/09/16 at 21:00 Ferric Sodium Gluconate Complex/ Sodium Chloride (Ferrlecit/NS) 110 ml @ 100 mls/hr Q24H IVPB Last administered on 04/10/16 14:52; Admin Dose 100 MLS/HR; Start 04/10/16 at 13:00; Stop 04/12/16 at 14:05 MITZY GOODMAN DATA COMMUNICATIONS TECHNICIAN Apr 10, 2016 18:00
[2016-04-10 19:56] VITALS: BP 142/66; RESP 17
[2016-04-10] MEDS: INSULIN GLARGINE [LANtus] 3 ML PEN SC SCH (20:10)
[2016-04-11] MEDS: SOD CHLORIDE 0.9% 1,000 ML IV SCH ×3 (00:24→16:41)
[2016-04-11] MEDS: ACCUCHECK XX SCH (02:00)
[2016-04-11] MEDS: LEVOFLOXACIN 500 MG TAB PO SCH (05:29)
[2016-04-11] MEDS: PANTOPRAZOLE (EC) 40 MG TAB PO SCH (05:29)
[2016-04-11] MEDS: VANCOMYCIN 750 MG in SOD CHLORIDE 0.9% 150 ML IVPB SCH ×2 (08:00→20:57)
[2016-04-11 08:02] VITALS: BP 155/70; RESP 16
[2016-04-11] MEDS: INSULIN ASPART [NOVOLOG] 3 ML PEN SC SCH ×7 (08:02→20:43)
[2016-04-11 08:13] LABS: CREATININE 1.25 mg/dl (0.61-1.24)
[2016-04-11] MEDS: ENOXAPARIN 30 MG/0.3 ML SYG SC SCH (09:00)
[2016-04-11] MEDS: ASCORBIC ACID 500 MG TAB PO SCH (09:19)
[2016-04-11] MEDS: CILOSTAZOL 100 MG TAB PO SCH ×2 (09:19→20:59)
[2016-04-11] MEDS: FERROUS SULFATE (EC) 325 MG TAB PO SCH (09:19)
--- NOTE | 2016-04-11 10:59 | RADRPT ---
PROCEDURE: Ultrasound proximal upper extremity for PICC placement CLINICAL INDICATION: PICC placement TECHNIQUE: Sonographic evaluation of the proximal left upper extremity vessels was performed utilizi ng a high-frequency linear transducer. COMPARISON: None available FINDINGS: Limited evaluation of the proximal upper extremity for vascular access for PICC placement. Grossly, no abnormality is seen. IMPRESSION: 1. Unremarkable limited proximal left upper extremity ultrasound for PICC placement. RPTAT: QQ .Bernard Tuttle MD, MD Date Time Electronically viewed and signed by .Bernard Tuttle MD, MD on 04/11/2016 10:59 .R/
--- NOTE | 2016-04-11 10:59 | RADRPT ---
PROCEDURE: XR Chest. CLINICAL INDICATION: PICC line placement TECHNIQUE: Single frontal chest x-ray. COMPARISON: 04/04/2016 FINDINGS: Left-sided PICC line is identified, with tip projecting over the region of the right atrium. There is mild pulmonary vascular congestion, increased from the prior x-ray. Cardiomediastinal silhouette is stable in appearance. No pneumothorax or significant pleural effusion is identified. The osseo us structures are unremarkable. IMPRESSION: 1. Left-sided PICC line is identified, with tip projecting over the region of the right atrium - co nsider approximately 4 cm line retraction. 2. Mild pulmonary vascular congestion is noted, increased from prior x-ray. RPTAT: QQ .Bernard Tuttle MD, MD Date Time Electronically viewed and signed by .Bernard Tuttle MD, on 04/11/2016 10:58 .R/
--- NOTE | 2016-04-11 11:28 | CONS ---
Date/Time of Note Date/Time of Note DATE: 04/11/16 TIME: 11:27 Assessment/Plan Assessment/Plan Chief Complaint/Hosp Course SUBJECTIVE: No acute changes. The patient is alert, feels good, looks comfortable, no fevers. MICROBIOLOGY: Blood culture on admission grew staph species 1 out of 2 sets. Left foot wound culture growing Proteus mirabilis and Enterococcus species. Intraoperative cultures also growing alpha hemolytic strep, MRSA, enterococcus species and Proteus mirabilis. ANTIMICROBIALS: The patient is on IV vancomycin and Levaquin. PHYSICAL EXAMINATION: GENERAL: Well-developed elderly man who is alert, in no distress. HEENT: Head atraumatic, normocephalic. Sclerae anicteric. Buccal mucosa pink. NECK: Supple, trachea midline. CHEST: Rise symmetrical. Breath sounds clear. HEART: S1, S2. ABDOMEN: Soft, bowel tones present. EXTREMITIES: With bilateral feet dressing intact. ASSESSMENT: 1. Bilateral lower extremity infected diabetic ulceration with evidence of OM per MRI==> s/p debridement 2. Diabetes. 3. Staphylococcus bacteremia cw contaminant. 4. Peripheral vascular disease secondary to diabetic neuropathy. PLAN: The patient remains stable, s/p PICC, will need to be on IV Vanco or Daptomycin for 6-8 weeks, also on PO Levaquin DW staff Problems: Consultation Date/Type/Reason Admit Date/Time Apr 04, 2016 at 19:05 Type of Consultation: id Exam/Review of Systems Vital Signs Vitals Vital Signs Date Time Temp Pulse Resp B/P Pulse Ox O2 Delivery O2 Flow Rate FiO2 04/11/16 08:02 98.2 78 16 155/70 93 04/09/16 20:00 Room Air Intake and Output 04/10/16 04/10/16 04/11/16 15:00 23:00 07:00 Intake Total 250 ml 1830 ml 2170 ml Output Total 1900 ml 1425 ml Balance 250 ml -70 ml 745 ml Results Result Diagram: 04/10/16 0652 04/11/16 0600 Results 24 hrs Laboratory Tests Test 04/10/16 12:29 04/10/16 17:16 04/10/16 20:03 04/11/16 01:37 Bedside Glucose 104 134 229 H 222 H Test 04/11/16 06:00 04/11/16 07:59 Blood Urea Nitrogen 12 Creatinine 1.25 H Bedside Glucose 141 Medications Medications Current Medications Acetaminophen (Tylenol Tab) 650 mg Q6H PRN PO PAIN AND OR ELEVATED TEMP; Start 04/04/16 at 21:00 Bisacodyl (Dulcolax) 10 mg DAILY PRN PO CONSTIPATION; Start 04/04/16 at 21:00 Docusate Sodium (Colace) 100 mg BID PRN PO CONSTIPATION Last administered on 22:04; Admin Dose 100 MG; Start 04/04/16 at 21:00 Enoxaparin Sodium (Lovenox) 30 mg DAILY SC Last administered on 04/10/16 08:21 ; Admin Dose 30 MG; Start 04/05/16 at 09:00 Acetaminophen/ Hydrocodone Bitart ([place] (5/325)) 1 tab Q6H PRN PO PAIN Last administered on 04/09/16 21:27; Admin Dose 1 TAB; Start 04/04/16 at 21:00 Pantoprazole (Protonix Tab) 40 mg DAILY@06 PO Last administered on 04/11/16 05: 29; Admin Dose 40 MG; Start 04/05/16 at 06:00 Ondansetron HCl (Zofran Inj) 4 mg Q6H PRN IV NAUSEA AND/OR VOMITING; Start at 21:00 Diagnostic Test (Pha) (Accucheck) 1 ea 02 XX Last administered on 04/08/16 01: 59; Admin Dose 1 EA; Start 04/05/16 at 02:00 Miscellaneous Information 1 ea NOTE XX ; Start 04/04/16 at 22:30 Glucose (Glutose) 15 gm Q15M PRN PO DECREASED GLUCOSE; Start 04/04/16 at 22:30 Glucose (Glutose) 22.5 gm Q15M PRN PO DECREASED GLUCOSE; Start 04/04/16 at 22: 30 Dextrose (D50w Syringe) 25 ml Q15M PRN IV DECREASED GLUCOSE Last administered on 04/06/16 18:07; Admin Dose 25 ML; Start 04/04/16 at 22:30 Dextrose (D50w Syringe) 50 ml Q15M PRN IV DECREASED GLUCOSE; Start 04/04/16 at 22:30 Glucagon (Glucagen) 1 mg Q15M PRN IM DECREASED GLUCOSE; Start 04/04/16 at 22:30 Glucose 15 gm 15 gm Q15M PRN BUCCAL DECREASED GLUCOSE; Start 04/04/16 at 22:30 Sodium Chloride (NS) 1,000 ml @ 100 mls/hr Q10H IV Last administered on 00:24; Admin Dose 100 MLS/HR; Start 04/04/16 at 23:00 Insulin Glargine (Lantus) 25 unit HS SC Last administered on 04/10/16 20:10; Admin Dose 25 UNIT; Start 04/04/16 at 21:00 Levofloxacin (Levaquin) 500 mg DAILY@06 PO Last administered on 04/11/16 05:29 ; Admin Dose 500 MG; Start 04/06/16 at 06:00 Ferrous Sulfate (Ferrous Sulfate (Ec)) 325 mg DAILY PO Last administered on 04/11 09:19; Admin Dose 325 MG; Start 04/07/16 at 09:00 Ascorbic Acid (Vitamin C) 500 mg DAILY PO Last administered on 04/11/16 09:19; Admin Dose 500 MG; Start 04/07/16 at 09:00 Oxycodone/ Acetaminophen 1 tab 1 tab Q4H PRN PO PAIN Last administered on 15:30; Admin Dose 1 TAB; Start 04/06/16 at 22:00 Vancomycin HCl/ Sodium Chloride (Vancocin/NS) 150 ml @ 75 mls/hr Q12H IVPB Last administered on 04/11/16 08:00; Admin Dose 75 MLS/HR; Start 04/08/16 at 20: 00 Cilostazol 100 mg 100 mg BID PO Last administered on 04/11/16 09:19; Admin Dose 100 MG; Start 04/09/16 at 21:00 Ferric Sodium Gluconate Complex/ Sodium Chloride (Ferrlecit/NS) 110 ml @ 100 mls/hr Q24H IVPB Last administered on 04/10/16 14:52; Admin Dose 100 MLS/HR; Start 04/10/16 at 13:00; Stop 04/12/16 at 14:05 MITZY GOODMAN NP Apr 11, 2016 11:28
[2016-04-11] MEDS: SOD FERRIC GLUC COMPLX 125 MG in SOD CHLORIDE 0.9% 100 ML IVPB SCH (13:23)
--- NOTE | 2016-04-11 14:11 | PN ---
Date/Time of Note Date/Time of Note DATE: 04/11/16 TIME: 14:06 Assessment/Plan VTE Prophylaxis VTE Prophylaxis Intervention: LMWH Lines/Catheters IV Catheter Type (from Nrs): PICC Line Central line still needed: Yes Urinary Cath still in place: No Assessment/Plan Problems: (1) Non-pressure chronic ulcer of other part of right foot with necrosis of muscle Status: Chronic (2) Diabetes, polyneuropathy Status: Chronic Qualifiers: Diabetes mellitus type: type 2 Qualified Code: E11.42 - Diabetic polyneuropathy associated with type 2 diabetes mellitus (3) Peripheral vascular disease Status: Chronic (4) Non-pressure chronic ulcer of other part of right foot with fat layer exposed Status: Chronic (5) Charcot's joint, left ankle and foot Status: Chronic (6) Charcot's joint, right ankle and foot Status: Chronic (7) Essential hypertension Status: Chronic (8) Hyperlipidemia Status: Chronic Qualifiers: Hyperlipidemia type: pure hypercholesterolemia Qualified Code: E78.00 - Pure hypercholesterolemia (9) Foot ulcer due to secondary DM Status: Acute (10) Iron deficiency anemia Status: Chronic Qualifiers: Iron deficiency anemia type: chronic blood loss Qualified Code: D50.0 - Iron deficiency anemia due to chronic blood loss Assessment/Plan (1) Foot ulcer due to secondary DM Status: Acute Comment: He has had debridement and will need long-term antibiotic therapy as per infectious disease and podiatry recommendations. PICC line placed - needs placement for intermediate antibiotics (2) Hyperlipidemia Status: Chronic Comment: Remains on appropriate therapy Qualifiers: Hyperlipidemia type: pure hypercholesterolemia Qualified Code: E78.00 - Pure hypercholesterolemia (3) Essential hypertension Status: Chronic Comment: Good control (4) Iron deficiency anemia Status: Chronic Comment: Replete with 1 more dose IV Qualifiers: Iron deficiency anemia type: chronic blood loss Qualified Code: D50.0 - Iron deficiency anemia due to chronic blood loss (5) Charcot's joint, left ankle and foot Status: Chronic Comment: As per podiatry (6) Charcot's joint, right ankle and foot Status: Chronic Comment: As per podiatry (7) Diabetes, polyneuropathy Status: Chronic Comment: Sugar control is adequate. Continue care Qualifiers: Diabetes mellitus type: type 2 Qualified Code: E11.42 - Diabetic polyneuropathy associated with type 2 diabetes mellitus dispo - needs placement for debility, wound care and physical therapy with IV antibiotics. this progress note took greater than 30 minutes to complete Subjective 24 Hr Interval Summary Free Text/Dictation Patient is doing better. No overnight events. Spoke to the patient about the care plan. 10 minutes spent. Exam/Review of Systems Vital Signs Vitals Vital Signs Date Time Temp Pulse Resp B/P Pulse Ox O2 Delivery O2 Flow Rate FiO2 04/11/16 08:02 98.2 78 16 155/70 93 04/09/16 20:00 Room Air Intake and Output 04/10/16 04/10/16 04/11/16 15:00 23:00 07:00 Intake Total 250 ml 1830 ml 2170 ml Output Total 1900 ml 1425 ml Balance 250 ml -70 ml 745 ml Exam Gen Shanita: NAD, AAOx4 HEENT: NC/AT, PERRLA, EOMI, no pharyngeal erythema, no tonsillar exudates, no lymphadenopathy, no JVD, no carotid bruits NECK: supple, no thyromegaly THORAX: symmetrical, no obvious deformities CV: S1S2, RRR, no M/G/R Lungs: CTAB no W/C/R/R Abd: soft, NT/ND, +BS, no rebound, no guarding, neg HSM EXT: bilateral lower extremities wrapped in kerlex/payton bandage. Neuro: CN II-XII grossly intact, no focal deficits Psych: good mentation, alert and oriented, good mood and affect Skin: see extremities Results Result Diagram: 04/10/16 0652 04/11/16 0600 Results 24 hrs Laboratory Tests Test 04/10/16 17:16 04/10/16 20:03 04/11/16 01:37 04/11/16 06:00 Bedside Glucose 134 229 H 222 H Blood Urea Nitrogen 12 Creatinine 1.25 H Test 04/11/16 07:59 04/11/16 12:22 Bedside Glucose 141 150 Medications Medications Current Medications Acetaminophen (Tylenol Tab) 650 mg Q6H PRN PO PAIN AND OR ELEVATED TEMP; Start 04/04/16 at 21:00 Bisacodyl (Dulcolax) 10 mg DAILY PRN PO CONSTIPATION; Start 04/04/16 at 21:00 Docusate Sodium (Colace) 100 mg BID PRN PO CONSTIPATION Last administered on t 22:04; Admin Dose 100 MG; Start 04/04/16 at 21:00 Enoxaparin Sodium (Lovenox) 30 mg DAILY SC Last administered on 04/10/16 08:21 ; Admin Dose 30 MG; Start 04/05/16 at 09:00 Acetaminophen/ Hydrocodone Bitart ([place] (5/325)) 1 tab Q6H PRN PO PAIN Last administered on 04/09/16 21:27; Admin Dose 1 TAB; Start 04/04/16 at 21:00 Pantoprazole (Protonix Tab) 40 mg DAILY@06 PO Last administered on 04/11/16 05: 29; Admin Dose 40 MG; Start 04/05/16 at 06:00 Ondansetron HCl (Zofran Inj) 4 mg Q6H PRN IV NAUSEA AND/OR VOMITING; Start at 21:00 Diagnostic Test (Pha) (Accucheck) 1 ea 02 XX Last administered on 04/08/16 01: 59; Admin Dose 1 EA; Start 04/05/16 at 02:00 Miscellaneous Information 1 ea NOTE XX ; Start 04/04/16 at 22:30 Glucose (Glutose) 15 gm Q15M PRN PO DECREASED GLUCOSE; Start 04/04/16 at 22:30 Glucose (Glutose) 22.5 gm Q15M PRN PO DECREASED GLUCOSE; Start 04/04/16 at 22: 30 Dextrose (D50w Syringe) 25 ml Q15M PRN IV DECREASED GLUCOSE Last administered on 04/06/16 18:07; Admin Dose 25 ML; Start 04/04/16 at 22:30 Dextrose (D50w Syringe) 50 ml Q15M PRN IV DECREASED GLUCOSE; Start 04/04/16 at 22:30 Glucagon (Glucagen) 1 mg Q15M PRN IM DECREASED GLUCOSE; Start 04/04/16 at 22:30 Glucose 15 gm 15 gm Q15M PRN BUCCAL DECREASED GLUCOSE; Start 04/04/16 at 22:30 Sodium Chloride (NS) 1,000 ml @ 100 mls/hr Q10H IV Last administered on 00:24; Admin Dose 100 MLS/HR; Start 04/04/16 at 23:00 Insulin Glargine (Lantus) 25 unit HS SC Last administered on 04/10/16 20:10; Admin Dose 25 UNIT; Start 04/04/16 at 21:00 Levofloxacin (Levaquin) 500 mg DAILY@06 PO Last administered on 04/11/16 05:29 ; Admin Dose 500 MG; Start 04/06/16 at 06:00 Ferrous Sulfate (Ferrous Sulfate (Ec)) 325 mg DAILY PO Last administered on 04/11 09:19; Admin Dose 325 MG; Start 04/07/16 at 09:00 Ascorbic Acid (Vitamin C) 500 mg DAILY PO Last administered on 04/11/16 09:19; Admin Dose 500 MG; Start 04/07/16 at 09:00 Oxycodone/ Acetaminophen 1 tab 1 tab Q4H PRN PO PAIN Last administered on 15:30; Admin Dose 1 TAB; Start 04/06/16 at 22:00 Vancomycin HCl/ Sodium Chloride (Vancocin/NS) 150 ml @ 75 mls/hr Q12H IVPB Last administered on 04/11/16 08:00; Admin Dose 75 MLS/HR; Start 04/08/16 at 20: 00 Cilostazol 100 mg 100 mg BID PO Last administered on 04/11/16 09:19; Admin Dose 100 MG; Start 04/09/16 at 21:00 Ferric Sodium Gluconate Complex/ Sodium Chloride (Ferrlecit/NS) 110 ml @ 100 mls/hr Q24H IVPB Last administered on 04/11/16 13:23; Admin Dose 100 MLS/HR; Start 04/10/16 at 13:00; Stop 04/12/16 at 14:05 IV Flush (NS 10 ml) 10 ml PRN PRN IV IV PROTOCOL; Start 04/11/16 at 12:00 Pneumococcal Polyvalent Vaccine (Pneumovax-23) 0.5 ml ONCE ONCE IM* ; Start 04/11 at 14:30; Stop 04/11/16 at 14:31; Status TALITA BRISENO MD Apr 11, 2016 14:11
[2016-04-11] MEDS ORDERED: PNEUMOCOCCAL VACCINE 0.5 ML INJ IM* ONE (14:30)
[2016-04-11 19:47] VITALS: BP 124/58; RESP 16
[2016-04-11] MEDS: INSULIN GLARGINE [LANtus] 3 ML PEN SC SCH (20:59)
[2016-04-12] MEDS: HYDROCODONE/APAP (5/325) TAB PO PRN (00:47)
[2016-04-12] MEDS: ACCUCHECK XX SCH (02:00)
[2016-04-12 06:01] LABS: BASOPHILS % 0.3 % (0.0-2.0); EOSINOPHILS # 0.3 10^3/ul (0.0-0.5); EOSINOPHILS % 3.1 % (0.0-7.0); HEMATOCRIT 23.8 % (42.0-52.0); HEMOGLOBIN 8.1 g/dl (14.0-18.0); LYMPHOCYTES # 1.9 10^3/ul (0.8-2.9); MEAN CORPUSCULAR HEMOGLOBIN 28.7 pg (29.0-33.0); MEAN CORPUSCULAR HGB CONC 34.2 g/dl (32.0-37.0); MEAN CORPUSCULAR VOLUME 83.8 fl (82.0-101.0); MEAN PLATELET VOLUME 6.9 fl (7.4-10.4); MONOCYTE # 0.7 10^3/ul (0.3-0.9); MONOCYTES % 7.9 % (0.0-11.0); NEUTROPHIL # 6.5 10^3/ul (1.6-7.5); NEUTROPHILS % 68.7 % (39.0-77.0); PLATELET COUNT 689 10^3/UL (140-440); RED BLOOD COUNT 2.84 10^6/ul (4.70-6.10); RED CELL DISTRIBUTION WIDTH 12.8 % (11.5-14.5); UNCORRECTED WBC 9.5 10^3/ul (4.8-10.8); WHITE BLOOD COUNT 9.5 10^3/ul (4.8-10.8)
[2016-04-12] MEDS: LEVOFLOXACIN 500 MG TAB PO SCH (06:11)
[2016-04-12] MEDS: PANTOPRAZOLE (EC) 40 MG TAB PO SCH (06:11)
[2016-04-12 06:44] LABS: POTASSIUM 3.9 mmol/L (3.5-5.1)
[2016-04-12 06:47] LABS: CALCIUM 8.3 mg/dl (8.4-10.2); CREATININE 1.15 mg/dl (0.61-1.24)
[2016-04-12 07:08] LABS: CONDITION 1
[2016-04-12] MEDS: SOD CHLORIDE 0.9% 1,000 ML IV SCH ×3 (07:59→21:00)
[2016-04-12] MEDS: INSULIN ASPART [NOVOLOG] 3 ML PEN SC SCH ×7 (07:59→21:00)
[2016-04-12 08:37] VITALS: BP 138/62; RESP 21
[2016-04-12] MEDS: FERROUS SULFATE (EC) 325 MG TAB PO SCH (08:59)
[2016-04-12] MEDS: CILOSTAZOL 100 MG TAB PO SCH ×2 (08:59→21:43)
[2016-04-12] MEDS: VANCOMYCIN 750 MG in SOD CHLORIDE 0.9% 150 ML IVPB SCH ×2 (09:00→21:43)
[2016-04-12] MEDS: ASCORBIC ACID 500 MG TAB PO SCH (09:00)
[2016-04-12] MEDS: ENOXAPARIN 30 MG/0.3 ML SYG SC SCH (09:00)
[2016-04-12] MEDS: SOD FERRIC GLUC COMPLX 125 MG in SOD CHLORIDE 0.9% 100 ML IVPB SCH (12:37)
--- NOTE | 2016-04-12 13:42 | PN ---
Date/Time of Note Date/Time of Note DATE: 04/12/16 TIME: 13:39 Assessment/Plan VTE Prophylaxis VTE Prophylaxis Intervention: LMWH Lines/Catheters IV Catheter Type (from Nrs): PICC Line Central line still needed: Yes Urinary Cath still in place: No Assessment/Plan Assessment/Plan Assessment/Plan (1) Foot ulcer due to secondary DM Status: Acute Comment: He has had debridement and will need long-term antibiotic therapy as per infectious disease and podiatry recommendations. PICC line placed - needs placement for exterminator antibiotics (2) Hyperlipidemia Status: Chronic Comment: Remains on appropriate therapy Qualifiers: Hyperlipidemia type: pure hypercholesterolemia Qualified Code: E78.00 - Pure hypercholesterolemia (3) Essential hypertension Status: Chronic Comment: Good control (4) Iron deficiency anemia Status: Chronic Comment: Replete with 1 more dose IV Qualifiers: Iron deficiency anemia type: chronic blood loss Qualified Code: D50.0 - Iron deficiency anemia due to chronic blood loss (5) Charcot's joint, left ankle and foot Status: Chronic Comment: As per podiatry (6) Charcot's joint, right ankle and foot Status: Chronic Comment: As per podiatry (7) Diabetes, polyneuropathy Status: Chronic Comment: Sugar control is adequate. Continue care Qualifiers: Diabetes mellitus type: type 2 Qualified Code: E11.42 - Diabetic polyneuropathy associated with type 2 diabetes mellitus dispo - needs placement for debility, wound care and physical therapy with IV antibiotics. - as per clinical course this progress note took greater than 30 minutes to complete Subjective 24 Hr Interval Summary Free Text/Dictation Patient had no overnight events. Spoke to the patient about the care plan. He understand that he needs [facility] level of care because of his wounds and requirement of IV antibiotics. 15 minutes spent. Exam/Review of Systems Vital Signs Vitals Vital Signs Date Time Temp Pulse Resp B/P Pulse Ox O2 Delivery O2 Flow Rate FiO2 04/12/16 08:37 98.2 86 21 138/62 97 04/09/16 20:00 Room Air Intake and Output 04/11/16 04/11/16 04/12/16 15:00 23:00 07:00 Intake Total 250 ml 990 ml 1100 ml Output Total 1160 ml Balance 250 ml 990 ml -60 ml Exam Gen Shanita: NAD, AAOx4 HEENT: NC/AT, PERRLA, EOMI, no pharyngeal erythema, no tonsillar exudates, no lymphadenopathy, no JVD, no carotid bruits NECK: supple, no thyromegaly THORAX: symmetrical, no obvious deformities CV: S1S2, RRR, no M/G/R Lungs: CTAB no W/C/R/R Abd: soft, NT/ND, +BS, no rebound, no guarding, neg HSM EXT: bilateral lower extremities wrapped in kerlex/payton bandage. Neuro: CN II-XII grossly intact, no focal deficits Psych: good mentation, alert and oriented, good mood and affect Skin: see extremities Results Result Diagram: 04/12/16 0500 04/12/16 0506 Results 24 hrs Laboratory Tests Test 04/11/16 16:42 04/11/16 20:34 04/12/16 05:00 04/12/16 05:06 Bedside Glucose 157 160 Basophils # 0.0 Basophils % 0.3 Blood Morphology Comment Eosinophils # 0.3 Eosinophils % 3.1 Hematocrit 23.8 L Hemoglobin 8.1 L Lymphocytes # 1.9 Lymphocytes % 20.0 Mean Corpuscular Hemoglobin 28.7 L Mean Corpuscular Hemoglobin Concent 34.2 Mean Corpuscular Volume 83.8 Mean Platelet Volume 6.9 L Monocytes # 0.7 Monocytes % 7.9 Neutrophils # 6.5 Neutrophils % 68.7 Nucleated Red Blood Cells # 0.0 Nucleated Red Blood Cells % 0.0 Platelet Count 689 H Red Blood Count 2.84 L Red Cell Distribution Width 12.8 White Blood Count 9.5 Anion Gap 12 Blood Urea Nitrogen 14 Calcium Level 8.3 L Carbon Dioxide Level 30 Chloride Level 101 Creatinine 1.15 Glucose Level 112 Potassium Level 3.9 Sodium Level 139 Test 04/12/16 07:58 04/12/16 11:39 Bedside Glucose 93 97 Medications Medications Current Medications Acetaminophen (Tylenol Tab) 650 mg Q6H PRN PO PAIN AND OR ELEVATED TEMP; Start 04/04/16 at 21:00 Bisacodyl (Dulcolax) 10 mg DAILY PRN PO CONSTIPATION; Start 04/04/16 at 21:00 Docusate Sodium (Colace) 100 mg BID PRN PO CONSTIPATION Last administered on t 22:04; Admin Dose 100 MG; Start 04/04/16 at 21:00 Enoxaparin Sodium (Lovenox) 30 mg DAILY SC Last administered on 04/12/16 09:00 ; Admin Dose 30 MG; Start 04/05/16 at 09:00 Acetaminophen/ Hydrocodone Bitart ([place] (5/325)) 1 tab Q6H PRN PO PAIN Last administered on 04/12/16 00:47; Admin Dose 1 TAB; Start 04/04/16 at 21:00 Pantoprazole (Protonix Tab) 40 mg DAILY@06 PO Last administered on 04/12/16 06: 11; Admin Dose 40 MG; Start 04/05/16 at 06:00 Ondansetron HCl (Zofran Inj) 4 mg Q6H PRN IV NAUSEA AND/OR VOMITING; Start at 21:00 Diagnostic Test (Pha) (Accucheck) 1 ea 02 XX Last administered on 04/08/16 01: 59; Admin Dose 1 EA; Start 04/05/16 at 02:00 Miscellaneous Information 1 ea NOTE XX ; Start 04/04/16 at 22:30 Glucose (Glutose) 15 gm Q15M PRN PO DECREASED GLUCOSE; Start 04/04/16 at 22:30 Glucose (Glutose) 22.5 gm Q15M PRN PO DECREASED GLUCOSE; Start 04/04/16 at 22: 30 Dextrose (D50w Syringe) 25 ml Q15M PRN IV DECREASED GLUCOSE Last administered on 04/06/16 18:07; Admin Dose 25 ML; Start 04/04/16 at 22:30 Dextrose (D50w Syringe) 50 ml Q15M PRN IV DECREASED GLUCOSE; Start 04/04/16 at 22:30 Glucagon (Glucagen) 1 mg Q15M PRN IM DECREASED GLUCOSE; Start 04/04/16 at 22:30 Glucose 15 gm 15 gm Q15M PRN BUCCAL DECREASED GLUCOSE; Start 04/04/16 at 22:30 Sodium Chloride (NS) 1,000 ml @ 100 mls/hr Q10H IV Last administered on 11:40; Admin Dose 100 MLS/HR; Start 04/04/16 at 23:00 Insulin Glargine (Lantus) 25 unit HS SC Last administered on 04/11/16 20:59; Admin Dose 25 UNIT; Start 04/04/16 at 21:00 Levofloxacin (Levaquin) 500 mg DAILY@06 PO Last administered on 04/12/16 06:11 ; Admin Dose 500 MG; Start 04/06/16 at 06:00 Ferrous Sulfate (Ferrous Sulfate (Ec)) 325 mg DAILY PO Last administered on 04/12 08:59; Admin Dose 325 MG; Start 04/07/16 at 09:00 Ascorbic Acid (Vitamin C) 500 mg DAILY PO Last administered on 04/12/16 09:00; Admin Dose 500 MG; Start 04/07/16 at 09:00 Oxycodone/ Acetaminophen 1 tab 1 tab Q4H PRN PO PAIN Last administered on 15:30; Admin Dose 1 TAB; Start 04/06/16 at 22:00 Vancomycin HCl/ Sodium Chloride (Vancocin/NS) 150 ml @ 75 mls/hr Q12H IVPB Last administered on 04/12/16 09:00; Admin Dose 75 MLS/HR; Start 04/08/16 at 20: 00 Cilostazol 100 mg 100 mg BID PO Last administered on 04/12/16 08:59; Admin Dose 100 MG; Start 04/09/16 at 21:00 Ferric Sodium Gluconate Complex/ Sodium Chloride (Ferrlecit/NS) 110 ml @ 100 mls/hr Q24H IVPB Last administered on 04/12/16 12:37; Admin Dose 100 MLS/HR; Start 04/10/16 at 13:00; Stop 04/12/16 at 14:05 IV Flush (NS 10 ml) 10 ml PRN PRN IV IV PROTOCOL; Start 04/11/16 at 12:00 TALITA TAMEZ MD Apr 12, 2016 13:42
[2016-04-12 20:00] VITALS: BP 140/87; RESP 18
[2016-04-12] MEDS ORDERED: IBUPROFEN 400 MG TAB PO PRN (21:30)
[2016-04-12] MEDS: INSULIN GLARGINE [LANtus] 3 ML PEN SC SCH (21:50)
--- NOTE | 2016-04-12 23:06 | CONS ---
Date/Time of Note Date/Time of Note DATE: 04/12/16 TIME: 13:04 Assessment/Plan Assessment/Plan Chief Complaint/Hosp Course SUBJECTIVE: No acute changes. The patient is alert, feels good, looks comfortable, no fevers. MICROBIOLOGY: Blood culture on admission grew staph species 1 out of 2 sets. Left foot wound culture growing Proteus mirabilis and Enterococcus species. Intraoperative cultures also growing alpha hemolytic strep, MRSA, enterococcus species and Proteus mirabilis. ANTIMICROBIALS: The patient is on IV vancomycin and Levaquin. PHYSICAL EXAMINATION: GENERAL: Well-developed elderly man who is alert, in no distress. HEENT: Head atraumatic, normocephalic. Sclerae anicteric. Buccal mucosa pink. NECK: Supple, trachea midline. CHEST: Rise symmetrical. Breath sounds clear. HEART: S1, S2. ABDOMEN: Soft, bowel tones present. EXTREMITIES: With bilateral feet dressing intact. ASSESSMENT: 1. Bilateral lower extremity infected diabetic ulceration with evidence of OM per MRI==> s/p debridement 2. Diabetes. 3. Staphylococcus bacteremia cw contaminant. 4. Peripheral vascular disease secondary to diabetic neuropathy. PLAN: The patient remains stable, continue abx, local wound care per podiatry== > dc on IV Vanco or Daptomycin for 6-8 weeks and on PO Levaquin DW staff Problems: Consultation Date/Type/Reason Admit Date/Time Apr 04, 2016 at 19:05 Type of Consultation: id Exam/Review of Systems Vital Signs Vitals Vital Signs Date Time Temp Pulse Resp B/P Pulse Ox O2 Delivery O2 Flow Rate FiO2 04/12/16 20:00 98.0 89 18 140/87 96 04/09/16 20:00 Room Air Intake and Output 04/11/16 04/11/16 04/12/16 15:00 23:00 07:00 Intake Total 250 ml 990 ml 1100 ml Output Total 1160 ml Balance 250 ml 990 ml -60 ml Results Result Diagram: 04/12/16 0500 04/12/16 0506 Results 24 hrs Laboratory Tests Test 04/12/16 05:00 04/12/16 05:06 04/12/16 07:58 04/12/16 11:39 Basophils # 0.0 Basophils % 0.3 Blood Morphology Comment Eosinophils # 0.3 Eosinophils % 3.1 Hematocrit 23.8 L Hemoglobin 8.1 L Lymphocytes # 1.9 Lymphocytes % 20.0 Mean Corpuscular Hemoglobin 28.7 L Mean Corpuscular Hemoglobin Concent 34.2 Mean Corpuscular Volume 83.8 Mean Platelet Volume 6.9 L Monocytes # 0.7 Monocytes % 7.9 Neutrophils # 6.5 Neutrophils % 68.7 Nucleated Red Blood Cells # 0.0 Nucleated Red Blood Cells % 0.0 Platelet Count 689 H Red Blood Count 2.84 L Red Cell Distribution Width 12.8 White Blood Count 9.5 Anion Gap 12 Blood Urea Nitrogen 14 Calcium Level 8.3 L Carbon Dioxide Level 30 Chloride Level 101 Creatinine 1.15 Glucose Level 112 Potassium Level 3.9 Sodium Level 139 Bedside Glucose 93 97 Test 04/12/16 16:49 04/12/16 21:47 Bedside Glucose 146 140 Medications Medications Current Medications Acetaminophen (Tylenol Tab) 650 mg Q6H PRN PO PAIN AND OR ELEVATED TEMP; Start 04/04/16 at 21:00 Bisacodyl (Dulcolax) 10 mg DAILY PRN PO CONSTIPATION; Start 04/04/16 at 21:00 Docusate Sodium (Colace) 100 mg BID PRN PO CONSTIPATION Last administered on 22:04; Admin Dose 100 MG; Start 04/04/16 at 21:00 Enoxaparin Sodium (Lovenox) 30 mg DAILY SC Last administered on 04/12/16 09:00 ; Admin Dose 30 MG; Start 04/05/16 at 09:00 Acetaminophen/ Hydrocodone Bitart ([place] (5/325)) 1 tab Q6H PRN PO PAIN Last administered on 04/12/16 00:47; Admin Dose 1 TAB; Start 04/04/16 at 21:00 Pantoprazole (Protonix Tab) 40 mg DAILY@06 PO Last administered on 04/12/16 06: 11; Admin Dose 40 MG; Start 04/05/16 at 06:00 Ondansetron HCl (Zofran Inj) 4 mg Q6H PRN IV NAUSEA AND/OR VOMITING; Start at 21:00 Diagnostic Test (Pha) (Accucheck) 1 ea 02 XX Last administered on 04/08/16 01: 59; Admin Dose 1 EA; Start 04/05/16 at 02:00 Miscellaneous Information 1 ea NOTE XX ; Start 04/04/16 at 22:30 Glucose (Glutose) 15 gm Q15M PRN PO DECREASED GLUCOSE; Start 04/04/16 at 22:30 Glucose (Glutose) 22.5 gm Q15M PRN PO DECREASED GLUCOSE; Start 04/04/16 at 22: 30 Dextrose (D50w Syringe) 25 ml Q15M PRN IV DECREASED GLUCOSE Last administered on 04/06/16 18:07; Admin Dose 25 ML; Start 04/04/16 at 22:30 Dextrose (D50w Syringe) 50 ml Q15M PRN IV DECREASED GLUCOSE; Start 04/04/16 at 22:30 Glucagon (Glucagen) 1 mg Q15M PRN IM DECREASED GLUCOSE; Start 04/04/16 at 22:30 Glucose 15 gm 15 gm Q15M PRN BUCCAL DECREASED GLUCOSE; Start 04/04/16 at 22:30 Sodium Chloride (NS) 1,000 ml @ 100 mls/hr Q10H IV Last administered on 11:40; Admin Dose 100 MLS/HR; Start 04/04/16 at 23:00 Insulin Glargine (Lantus) 25 unit HS SC Last administered on 04/12/16 21:50; Admin Dose 25 UNIT; Start 04/04/16 at 21:00 Levofloxacin (Levaquin) 500 mg DAILY@06 PO Last administered on 04/12/16 06:11 ; Admin Dose 500 MG; Start 04/06/16 at 06:00 Ferrous Sulfate (Ferrous Sulfate (Ec)) 325 mg DAILY PO Last administered on 04/12 08:59; Admin Dose 325 MG; Start 04/07/16 at 09:00 Ascorbic Acid (Vitamin C) 500 mg DAILY PO Last administered on 04/12/16 09:00; Admin Dose 500 MG; Start 04/07/16 at 09:00 Oxycodone/ Acetaminophen 1 tab 1 tab Q4H PRN PO PAIN Last administered on 15:30; Admin Dose 1 TAB; Start 04/06/16 at 22:00 Vancomycin HCl/ Sodium Chloride (Vancocin/NS) 150 ml @ 75 mls/hr Q12H IVPB Last administered on 04/12/16 21:43; Admin Dose 75 MLS/HR; Start 04/08/16 at 20: 00 Cilostazol (Pletal) 100 mg BID PO Last administered on 04/12/16 21:43; Admin Dose 100 MG; Start 04/09/16 at 21:00 IV Flush (NS 10 ml) 10 ml PRN PRN IV IV PROTOCOL; Start 04/11/16 at 12:00 Miscellaneous Information (*Rx Drug Level Order Reminder*) VANCO TROUGH @ 0, 700 ON... ONCE ONCE XX ; Start 04/13/16 at 07:00; Stop 04/13/16 at 07:01 Ibuprofen (Motrin) 400 mg Q6H PRN PO PAIN OR TEMP ABOVE 38C Last administered on 04/12/16 21:42; Admin Dose 400 MG; Start 04/12/16 at 21:30 MITZY GOODMAN NP Apr 12, 2016 23:06
[2016-04-12] MEDS: OXYCODONE/ACETAMINOPHEN (5/325) TAB PO PRN (23:44)
[2016-04-13] MEDS: ACCUCHECK XX SCH (02:00)
[2016-04-13] MEDS: SOD CHLORIDE 0.9% 1,000 ML IV SCH ×3 (02:52→22:33)
[2016-04-13] MEDS: PANTOPRAZOLE (EC) 40 MG TAB PO SCH (05:51)
[2016-04-13] MEDS: LEVOFLOXACIN 500 MG TAB PO SCH (05:51)
[2016-04-13] MEDS: INSULIN ASPART [NOVOLOG] 3 ML PEN SC SCH ×7 (07:35→20:33)
[2016-04-13 07:57] LABS: BASOPHILS % 0.5 % (0.0-2.0); EOSINOPHILS # 0.3 10^3/ul (0.0-0.5); EOSINOPHILS % 2.9 % (0.0-7.0); HEMATOCRIT 25.3 % (42.0-52.0); HEMOGLOBIN 8.5 g/dl (14.0-18.0); LYMPHOCYTES # 1.9 10^3/ul (0.8-2.9); LYMPHOCYTES % 20.8 % (15.0-51.0); MEAN CORPUSCULAR HEMOGLOBIN 28.1 pg (29.0-33.0); MEAN CORPUSCULAR HGB CONC 33.4 g/dl (32.0-37.0); MEAN CORPUSCULAR VOLUME 84.2 fl (82.0-101.0); MEAN PLATELET VOLUME 6.5 fl (7.4-10.4); MONOCYTE # 0.8 10^3/ul (0.3-0.9); NEUTROPHIL # 6.2 10^3/ul (1.6-7.5); NEUTROPHILS % 66.8 % (39.0-77.0); PLATELET COUNT 762 10^3/UL (140-440); RED BLOOD COUNT 3.01 10^6/ul (4.70-6.10); RED CELL DISTRIBUTION WIDTH 13.3 % (11.5-14.5); UNCORRECTED WBC 9.2 10^3/ul (4.8-10.8); WHITE BLOOD COUNT 9.2 10^3/ul (4.8-10.8)
[2016-04-13 07:59] VITALS: BP 143/68; RESP 18
[2016-04-13 08:01] LABS: CONDITION 1
[2016-04-13 08:11] LABS: POTASSIUM 3.6 mmol/L (3.5-5.1)
[2016-04-13 08:14] LABS: CREATININE 1.19 mg/dl (0.61-1.24)
[2016-04-13] MEDS: FERROUS SULFATE (EC) 325 MG TAB PO SCH (08:14)
[2016-04-13] MEDS: VANCOMYCIN 750 MG in SOD CHLORIDE 0.9% 150 ML IVPB SCH ×2 (08:14→16:23)
[2016-04-13] MEDS: ASCORBIC ACID 500 MG TAB PO SCH (08:14)
[2016-04-13] MEDS: CILOSTAZOL 100 MG TAB PO SCH ×2 (08:14→20:39)
[2016-04-13 08:15] LABS: CALCIUM 8.2 mg/dl (8.4-10.2)
[2016-04-13] MEDS: ENOXAPARIN 30 MG/0.3 ML SYG SC SCH (08:16)
[2016-04-13] MEDS ORDERED: DOCU-216 PO (13:16)
[2016-04-13] MEDS ORDERED: FER325 PO (13:16)
[2016-04-13] MEDS ORDERED: LANT3I SC (13:16)
[2016-04-13] MEDS ORDERED: CILO100T PO (13:16)
[2016-04-13] MEDS ORDERED: VANC750P4 IV (13:16)
[2016-04-13] MEDS ORDERED: NOVO3I SC (13:16)
[2016-04-13] MEDS ORDERED: HYDR-3498 PO (13:16)
[2016-04-13] MEDS ORDERED: LEVO500T72 PO (13:16)
[2016-04-13] MEDS ORDERED: ZINC100T PO (13:16)
[2016-04-13] MEDS ORDERED: ASC500 PO (13:16)
--- NOTE | 2016-04-13 13:18 | PDOCDIS ---
Discharge Instructions DIAGNOSIS Discharge Diagnosis: Foot Ulcerations CONDITION Patient Condition: Stable HOME CARE INSTRUCTIONS: Special Diet: 1800ada ACTIVITY: Activity Restrictions: Slowly Increase Activity Rest between Activity FOLLOW UP/APPOINTMENTS Appointments follow up with primary care physician in one week. follow up with home health as recommended for IV antibiotics - see prescriptions OTHER ORDERS: Other Orders: foot ulcerations - take the levaquin and vancomycin as prescribed - follow up with wound care TALITA TAMEZ MD Apr 13, 2016 13:18
--- NOTE | 2016-04-13 13:54 | DS ---
DATE OF ADMISSION: 04/04/2016 DATE OF DISCHARGE: 04/06/2016 CONSULTANTS ON THE CASE: Dr. Kahlil Pritchard, Dr. Mariano Bobo and Dr. Karlo Lockett. DISCHARGE DIAGNOSES: 1. Chronic foot ulcers secondary to diabetes, status post incision and drainage and debridement. 2. Dyslipidemia. 3. Essential hypertension. 4. Iron deficiency anemia. 5. Charcot joint, left ankle and foot. 6. Charcot joint, right ankle and foot. 7. Diabetes with polyneuropathy. HOSPITAL COURSE: This is a pleasant 61-year-old male with a history of type 2 diabetes, dyslipidemi a, hypertension, bilateral foot ulcers. Patient is status post bilateral fifth toe amputation who h as been suffering ulcer at the lateral aspect of his left foot and followed up at the [facility] prior to admission, and came in for further evaluation and treatment here in med/surg. The patient's initial laboratory findings had shown a white count of 11.3, currently 9.2, H and H wa s 10.0 and 29.4, currently 8.5 and 25.3. Platelets have been stable. Chemistry initially had shown sodium 133, BUN of 24, creatinine 1.18 with hemoglobin A1c of 12.3. Currently, his sodium is 141, BUN and creatinine 13 and 1.19 with a glucose of 66 and 88, calcium is 8.2, magnesium at one point w as 1.8, which was repleted. Iron levels was iron of 11, TIBC of 203 and saturations of 5, ferritin 103, LDL of 88, HDL of 22. TSH was 3.87. Coags were within normal limits. Toxicology was normal. Urine was negative. Immunology: Nothing at this time. Hepatitis B and C were negative. DIAGNOSTIC IMAGING: A foot x-ray on the right showed: 1. No lytic or destructive osseous changes. 2. Diffuse soft tissue swelling. 3. Prior amputation of the midshaft metatarsals. Foot x-ray on the left foot had shown: 1. Probable ulcer in the region of the talar navicular joint. Recommend MRI for evaluation of oste omyelitis. 2. Severe neuropathic joint changes. 3. Prior amputation of the fifth ray and partial amputation of the head and neck of the fourth meta tarsal. 4. Vascular calcifications. Chest x-ray showed hyperexpanded clear lungs. Ankle x-ray has shown on the right: 1. No lytic or destructive osseous changes. 2. Diffuse soft tissue swelling. 3. Prior amputation at the level of the metatarsal neck. 4. Vascular calcifications. Ankle x-ray on the left has shown: 1. Plantar ulcer at the lateral mid foot with severe neuropathic changes involving the inner tarsal joints. It is difficult to exclude osteomyelitis, recommend MRI for further evaluation. 2. Diffuse soft tissue swelling. 3. Vascular calcifications. Ankle MRI on the right had shown: 1. Plantar lateral skin ulceration with osteomyelitis of the residual shaft of the fifth metatarsal . 2. Abnormal marrow signal along the first metatarsal shafts at the edge of the field of view and in completely assessed osteomyelitis at this location is not excluded and should be correlated with dir ect inspection for an adjacent skin ulceration. 3. Diffuse subcutaneous soft tissue swelling without drainable fluid collection. 4. Background degenerative and/or Charcot changes throughout the mid foot. 5. Intrinsic foot muscle atrophy and edema, nonspecific, query diabetic microangiopathy. Ankle MRI of the left ankle showed: 1. Large plantar lateral skin ulceration nearly extending to the bone with osteomyelitis of the ant erior calcaneus cuboid, the residual fifth metatarsal base and the fourth metatarsal bases. Calcane ocuboid fourth and fifth tarsometatarsal joint fluid also suggest septic arthritis. 2. Surrounding plantar and lateral soft tissue swelling and phlegmonous changes suggestive of cellu litis without drainable fluid collection. 3. Background severe degenerative and/or Charcot changes at the mid foot. 4. Intrinsic foot muscle atrophy and edema, possibly related to diabetic microangiopathy. PICC line was inserted. The patient was started on appropriate antibiotics converted into Levaquin and vancomycin at this time secondary to susceptibility. The patient was kept on isolation precauti ons because of MRSA that was in the wound culture, Pseudomonas aeruginosa, enterococcus species, Pro teus mirabilis and coag negative staph as well was noted. Blood culture also showed coag negative s taph, currently the blood cultures x5 days are negative. Subsequently, the patient did undergo surgery, which included excisional debridement of necrotic wou nd of left foot measuring 4 x 3 cm to the level of the muscle. Excisional debridement of necrotic o pen wound of right foot measuring 2.2 cm to the level of the muscle Subsequently, the patient is doi ng well; however, recommended to home health to followup at this time with PT wound as well as antib iotic treatment. The patient understood this and agreed with the plan. DISPOSITION: Home with home health. CONDITION: Fair to stable. DISCHARGE MEDICATIONS: Include: 1. Vitamin C 500 mg p.o. daily. 2. Pletal 100 mg p.o. b.i.d. 3. Colace 100 mg p.o. b.i.d. 4. Ferrous sulfate 325 mg p.o. daily. 5. [place] 5/325 one tab p.o. q.6 p.r.n. pain. 6. Insulin 4 units subQ with meals. 7. Insulin Lantus 25 units subQ at bedtime. 8. Levaquin 500 mg for the next 40 days p.o. daily. 9. Vancomycin 750 mg IV piggyback for 40 days as well daily. 10. Zinc gluconate 220 mg p.o. daily. FOLLOWUP: The patient will follow up with home health as recommended. Will follow up with PT wound care as well. Will follow up with his primary caregiver in a week. Will follow up with Dr. Maximo Pritchard as recommended. Patient and consultants made aware of this and agree with the plan COORDINATION OF DISCHARGE: Greater than 50 minutes. Dictated By: TALITA CLARK/POLLY Conf#: [id number] DID#: [id number]
--- NOTE | 2016-04-13 16:30 | CONS ---
Date/Time of Note Date/Time of Note DATE: 04/13/16 TIME: 16:30 Assessment/Plan Assessment/Plan Chief Complaint/Hosp Course SUBJECTIVE: No acute changes. The patient is alert, feels good, looks comfortable, no fevers. MICROBIOLOGY: Blood culture on admission grew staph species 1 out of 2 sets. Left foot wound culture growing Proteus mirabilis and Enterococcus species. Intraoperative cultures also growing alpha hemolytic strep, MRSA, enterococcus species and Proteus mirabilis. ANTIMICROBIALS: The patient is on IV vancomycin and Levaquin. PHYSICAL EXAMINATION: GENERAL: Well-developed elderly man who is alert, in no distress. HEENT: Head atraumatic, normocephalic. Sclerae anicteric. Buccal mucosa pink. NECK: Supple, trachea midline. CHEST: Rise symmetrical. Breath sounds clear. HEART: S1, S2. ABDOMEN: Soft, bowel tones present. EXTREMITIES: With bilateral feet dressing intact. ASSESSMENT: 1. Bilateral lower extremity infected diabetic ulceration with evidence of OM per MRI==> s/p debridement 2. Diabetes. 3. Staphylococcus bacteremia cw contaminant. 4. Peripheral vascular disease secondary to diabetic neuropathy. PLAN: The patient remains stable, continue abx, local wound care per podiatry== > dc on IV Vanco or Daptomycin for 6-8 weeks and on PO Levaquin [facility] staff Problems: Consultation Date/Type/Reason Admit Date/Time Apr 04, 2016 at 19:05 Type of Consultation: id Exam/Review of Systems Vital Signs Vitals Vital Signs Date Time Temp Pulse Resp B/P Pulse Ox O2 Delivery O2 Flow Rate FiO2 04/13/16 07:59 97.6 85 18 143/68 97 04/09/16 20:00 Room Air Intake and Output 04/12/16 04/12/16 04/13/16 15:00 23:00 07:00 Intake Total 560 ml 1740 ml 1430 ml Output Total 1800 ml 1400 ml Balance 560 ml -60 ml 30 ml Results Result Diagram: 04/13/16 0704/13/16 0700 Results 24 hrs Laboratory Tests Test 04/12/16 16:49 04/12/16 21:47 04/13/16 07:00 04/13/16 07:52 Bedside Glucose 146 140 66 L Anion Gap 14 Basophils # 0.0 Basophils % 0.5 Blood Morphology Comment Blood Urea Nitrogen 13 Calcium Level 8.2 L Carbon Dioxide Level 28 Chloride Level 103 Creatinine 1.19 Eosinophils # 0.3 Eosinophils % 2.9 Glucose Level 65 #L Hematocrit 25.3 L Hemoglobin 8.5 L Lymphocytes # 1.9 Lymphocytes % 20.8 Mean Corpuscular Hemoglobin 28.1 L Mean Corpuscular Hemoglobin Concent 33.4 Mean Corpuscular Volume 84.2 Mean Platelet Volume 6.5 L Monocytes # 0.8 Monocytes % 9.0 Neutrophils # 6.2 Neutrophils % 66.8 Nucleated Red Blood Cells # 0.0 Nucleated Red Blood Cells % 0.0 Platelet Count 762 H Potassium Level 3.6 Red Blood Count 3.01 L Red Cell Distribution Width 13.3 Sodium Level 141 Vancomycin Level Trough 15.5 White Blood Count 9.2 Test 04/13/16 08:12 04/13/16 08:58 04/13/16 11:49 04/13/16 16:25 Bedside Glucose 88 158 128 113 Medications Medications Current Medications Acetaminophen (Tylenol Tab) 650 mg Q6H PRN PO PAIN AND OR ELEVATED TEMP; Start 04/04/16 at 21:00 Bisacodyl (Dulcolax) 10 mg DAILY PRN PO CONSTIPATION; Start 04/04/16 at 21:00 Docusate Sodium (Colace) 100 mg BID PRN PO CONSTIPATION Last administered on 22:04; Admin Dose 100 MG; Start 04/04/16 at 21:00 Enoxaparin Sodium (Lovenox) 30 mg DAILY SC Last administered on 04/13/16 08:16 ; Admin Dose 30 MG; Start 04/05/16 at 09:00 Acetaminophen/ Hydrocodone Bitart ([place] (5/325)) 1 tab Q6H PRN PO PAIN Last administered on 04/12/16 00:47; Admin Dose 1 TAB; Start 04/04/16 at 21:00 Pantoprazole (Protonix Tab) 40 mg DAILY@06 PO Last administered on 04/13/16 05: 51; Admin Dose 40 MG; Start 04/05/16 at 06:00 Ondansetron HCl (Zofran Inj) 4 mg Q6H PRN IV NAUSEA AND/OR VOMITING; Start at 21:00 Diagnostic Test (Pha) (Accucheck) 1 ea 02 XX Last administered on 04/08/16 01: 59; Admin Dose 1 EA; Start 04/05/16 at 02:00 Miscellaneous Information 1 ea NOTE XX ; Start 04/04/16 at 22:30 Glucose (Glutose) 15 gm Q15M PRN PO DECREASED GLUCOSE; Start 04/04/16 at 22:30 Glucose (Glutose) 22.5 gm Q15M PRN PO DECREASED GLUCOSE; Start 04/04/16 at 22: 30 Dextrose (D50w Syringe) 25 ml Q15M PRN IV DECREASED GLUCOSE Last administered on 04/06/16 18:07; Admin Dose 25 ML; Start 04/04/16 at 22:30 Dextrose (D50w Syringe) 50 ml Q15M PRN IV DECREASED GLUCOSE; Start 04/04/16 at 22:30 Glucagon (Glucagen) 1 mg Q15M PRN IM DECREASED GLUCOSE; Start 04/04/16 at 22:30 Glucose 15 gm 15 gm Q15M PRN BUCCAL DECREASED GLUCOSE; Start 04/04/16 at 22:30 Sodium Chloride (NS) 1,000 ml @ 100 mls/hr Q10H IV Last administered on 02:52; Admin Dose 100 MLS/HR; Start 04/04/16 at 23:00 Insulin Glargine (Lantus) 25 unit HS SC Last administered on 04/12/16 21:50; Admin Dose 25 UNIT; Start 04/04/16 at 21:00 Levofloxacin (Levaquin) 500 mg DAILY@06 PO Last administered on 04/13/16 05:51 ; Admin Dose 500 MG; Start 04/06/16 at 06:00 Ferrous Sulfate (Ferrous Sulfate (Ec)) 325 mg DAILY PO Last administered on 04/13 08:14; Admin Dose 325 MG; Start 04/07/16 at 09:00 Ascorbic Acid (Vitamin C) 500 mg DAILY PO Last administered on 04/13/16 08:14; Admin Dose 500 MG; Start 04/07/16 at 09:00 Oxycodone/ Acetaminophen 1 tab 1 tab Q4H PRN PO PAIN Last administered on 23:44; Admin Dose 1 TAB; Start 04/06/16 at 22:00 Vancomycin HCl/ Sodium Chloride (Vancocin/NS) 150 ml @ 75 mls/hr Q12H IVPB Last administered on 04/13/16 16:23; Admin Dose 75 MLS/HR; Start 04/08/16 at 20: 00 Cilostazol (Pletal) 100 mg BID PO Last administered on 04/13/16 08:14; Admin Dose 100 MG; Start 04/09/16 at 21:00 IV Flush (NS 10 ml) 10 ml PRN PRN IV IV PROTOCOL; Start 04/11/16 at 12:00 Ibuprofen (Motrin) 400 mg Q6H PRN PO PAIN OR TEMP ABOVE 38C Last administered on 04/12/16 21:42; Admin Dose 400 MG; Start 04/12/16 at 21:30 Collagenase (Santyl) 1 applic DAILY TOP ; Start 04/13/16 at 16:30; Status MITZY [employer]PER [employer] Apr 13, 2016 16:30
[2016-04-13] MEDS: COLLAGENASE 30 GM TUBE TOP SCH (18:52)
[2016-04-13 20:17] VITALS: BP 136/61; RESP 18
[2016-04-13] MEDS: OXYCODONE/ACETAMINOPHEN (5/325) TAB PO PRN (20:40)
[2016-04-13] MEDS: INSULIN GLARGINE [LANtus] 3 ML PEN SC SCH (20:43)
[2016-04-14] MEDS ORDERED: ALTEPLASE (CATHFLO) 2 MG INJ CATHETER PRN (00:30)
[2016-04-14] MEDS: ACCUCHECK XX SCH (01:51)
[2016-04-14] MEDS: SOD CHLORIDE 0.9% 1,000 ML IV SCH ×2 (03:00→12:29)
[2016-04-14] MEDS: OXYCODONE/ACETAMINOPHEN (5/325) TAB PO PRN (04:14)
[2016-04-14] MEDS: PANTOPRAZOLE (EC) 40 MG TAB PO SCH (05:27)
[2016-04-14] MEDS: LEVOFLOXACIN 500 MG TAB PO SCH (05:27)
[2016-04-14 05:39] LABS: BASOPHILS % 0.4 % (0.0-2.0); EOSINOPHILS # 0.3 10^3/ul (0.0-0.5); HEMATOCRIT 22.8 % (42.0-52.0); HEMOGLOBIN 7.7 g/dl (14.0-18.0); LYMPHOCYTES # 1.8 10^3/ul (0.8-2.9); LYMPHOCYTES % 19.9 % (15.0-51.0); MEAN CORPUSCULAR HEMOGLOBIN 28.8 pg (29.0-33.0); MEAN CORPUSCULAR HGB CONC 33.9 g/dl (32.0-37.0); MEAN PLATELET VOLUME 6.5 fl (7.4-10.4); MONOCYTE # 0.8 10^3/ul (0.3-0.9); MONOCYTES % 8.7 % (0.0-11.0); NEUTROPHIL # 6.3 10^3/ul (1.6-7.5); PLATELET COUNT 676 10^3/UL (140-440); RED BLOOD COUNT 2.69 10^6/ul (4.70-6.10); RED CELL DISTRIBUTION WIDTH 13.2 % (11.5-14.5); UNCORRECTED WBC 9.3 10^3/ul (4.8-10.8); WHITE BLOOD COUNT 9.3 10^3/ul (4.8-10.8)
[2016-04-14 06:04] LABS: POTASSIUM 3.5 mmol/L (3.5-5.1)
[2016-04-14 06:06] LABS: CREATININE 1.1 mg/dl (0.61-1.24)
[2016-04-14 06:07] LABS: CALCIUM 7.5 mg/dl (8.4-10.2)
[2016-04-14 06:22] LABS: CONDITION 1; LH ANALYZER COMMENTS 1
[2016-04-14 07:35] VITALS: BP 130/62; RESP 20
[2016-04-14] MEDS: INSULIN ASPART [NOVOLOG] 3 ML PEN SC SCH ×6 (08:00→17:25)
[2016-04-14] MEDS: CILOSTAZOL 100 MG TAB PO SCH (08:25)
[2016-04-14] MEDS: FERROUS SULFATE (EC) 325 MG TAB PO SCH (08:25)
[2016-04-14] MEDS: ASCORBIC ACID 500 MG TAB PO SCH (08:25)
[2016-04-14] MEDS: VANCOMYCIN 750 MG in SOD CHLORIDE 0.9% 150 ML IVPB SCH (08:25)
[2016-04-14] MEDS: ENOXAPARIN 30 MG/0.3 ML SYG SC SCH (08:26)
[2016-04-14] MEDS: COLLAGENASE 30 GM TUBE TOP SCH (08:27)
[2016-04-14 11:35] LABS: HEMATOCRIT 23.9 % (42.0-52.0); HEMOGLOBIN 7.8 g/dl (14.0-18.0)
--- NOTE | 2016-04-14 14:27 | DS ---
DATE OF ADMISSION: 04/04/2016 DATE OF DISCHARGE: 04/14/2016 ADDENDUM: Addendum to discharge summary of 04/13/2016. DISCHARGE DIAGNOSES: 1. Chronic foot ulcers secondary to diabetes, status post incision, drainage and debridement. 2. Dyslipidemia, on a statin. 3. Essential hypertension. Continue with the current medications. 4. Iron deficiency anemia. Continue with ferrous sulfate. 5. Charcot left ankle and foot. 6. Charcot joint, right ankle and foot. 7. Diabetes with polyneuropathy. The patient remained here because home health could not be set up until Monday, but otherwise was do ing well. He was noted to have a low hemoglobin and was transfused 1 unit of blood. Otherwise, no other acute complaints. Physical exam findings were stable. No other acute findings at this time. I spoke to the patient about the care plan. Dictated By: TALITA CLARK/POLLY Conf#: [id number] DID#: [id number]
--- NOTE | 2016-04-14 16:55 | CONS ---
Date/Time of Note Date/Time of Note DATE: 04/14/16 TIME: 16:54 Assessment/Plan Assessment/Plan Chief Complaint/Hosp Course SUBJECTIVE: No acute changes. The patient is alert, feels good, looks comfortable, no fevers. MICROBIOLOGY: Blood culture on admission grew staph species 1 out of 2 sets. Left foot wound culture growing Proteus mirabilis and Enterococcus species. Intraoperative cultures also growing alpha hemolytic strep, MRSA, enterococcus species and Proteus mirabilis. ANTIMICROBIALS: The patient is on IV vancomycin and Levaquin. PHYSICAL EXAMINATION: GENERAL: Well-developed elderly man who is alert, in no distress. HEENT: Head atraumatic, normocephalic. Sclerae anicteric. Buccal mucosa pink. NECK: Supple, trachea midline. CHEST: Rise symmetrical. Breath sounds clear. HEART: S1, S2. ABDOMEN: Soft, bowel tones present. EXTREMITIES: With bilateral feet dressing intact. ASSESSMENT: 1. Bilateral lower extremity infected diabetic ulceration with evidence of OM per MRI==> s/p debridement 2. Diabetes. 3. Staphylococcus bacteremia cw contaminant. 4. Peripheral vascular disease secondary to diabetic neuropathy. 5. Anemia PLAN: The patient remains stable, continue abx, local wound care per podiatry== > dc on IV Vanco or Daptomycin for 6-8 weeks and on PO Levaquin, bld tx prn [facility] staff Problems: Consultation Date/Type/Reason Admit Date/Time Apr 04, 2016 at 19:05 Type of Consultation: id Exam/Review of Systems Vital Signs Vitals Vital Signs Date Time Temp Pulse Resp B/P Pulse Ox O2 Delivery O2 Flow Rate FiO2 04/14/16 07:35 98.6 80 20 130/62 96 Intake and Output 04/13/16 04/13/16 04/14/16 15:00 23:00 07:00 Intake Total 150 ml 2810 ml 1500 ml Output Total 2000 ml 1910 ml Balance 150 ml 810 ml -410 ml Results Result Diagram: 04/14/16 1118 04/14/16 0435 Results 24 hrs Laboratory Tests Test 04/13/16 19:58 04/14/16 04:35 04/14/16 08:02 04/14/16 11:18 Bedside Glucose 113 77 Anion Gap 14 Basophils # 0.0 Basophils % 0.4 Blood Morphology Comment Blood Urea Nitrogen 13 Calcium Level 7.5 L Carbon Dioxide Level 26 Chloride Level 104 Creatinine 1.10 Eosinophils # 0.3 Eosinophils % 3.0 Glucose Level 144 # Hematocrit 22.8 L 23.9 L Hemoglobin 7.7 L 7.8 L Lymphocytes # 1.8 Lymphocytes % 19.9 Mean Corpuscular Hemoglobin 28.8 L Mean Corpuscular Hemoglobin Concent 33.9 Mean Corpuscular Volume 85.0 Mean Platelet Volume 6.5 L Monocytes # 0.8 Monocytes % 8.7 Neutrophils # 6.3 Neutrophils % 68.0 Nucleated Red Blood Cells # 0.0 Nucleated Red Blood Cells % 0.0 Platelet Count 676 H Potassium Level 3.5 Red Blood Count 2.69 L Red Cell Distribution Width 13.2 Sodium Level 140 White Blood Count 9.3 Test 04/14/16 11:57 04/14/16 16:29 Bedside Glucose 111 130 Medications Medications Current Medications Acetaminophen (Tylenol Tab) 650 mg Q6H PRN PO PAIN AND OR ELEVATED TEMP; Start 04/04/16 at 21:00 Bisacodyl (Dulcolax) 10 mg DAILY PRN PO CONSTIPATION; Start 04/04/16 at 21:00 Docusate Sodium (Colace) 100 mg BID PRN PO CONSTIPATION Last administered on 22:04; Admin Dose 100 MG; Start 04/04/16 at 21:00 Enoxaparin Sodium (Lovenox) 30 mg DAILY SC Last administered on 04/14/16 08:26 ; Admin Dose 30 MG; Start 04/05/16 at 09:00 Acetaminophen/ Hydrocodone Bitart ([place] (5/325)) 1 tab Q6H PRN PO PAIN Last administered on 04/12/16 00:47; Admin Dose 1 TAB; Start 04/04/16 at 21:00 Pantoprazole (Protonix Tab) 40 mg DAILY@06 PO Last administered on 04/14/16 05: 27; Admin Dose 40 MG; Start 04/05/16 at 06:00 Ondansetron HCl (Zofran Inj) 4 mg Q6H PRN IV NAUSEA AND/OR VOMITING; Start at 21:00 Diagnostic Test (Pha) (Accucheck) 1 ea 02 XX Last administered on 04/08/16 01: 59; Admin Dose 1 EA; Start 04/05/16 at 02:00 Miscellaneous Information 1 ea NOTE XX ; Start 04/04/16 at 22:30 Glucose (Glutose) 15 gm Q15M PRN PO DECREASED GLUCOSE; Start 04/04/16 at 22:30 Glucose (Glutose) 22.5 gm Q15M PRN PO DECREASED GLUCOSE; Start 04/04/16 at 22: 30 Dextrose (D50w Syringe) 25 ml Q15M PRN IV DECREASED GLUCOSE Last administered on 04/06/16 18:07; Admin Dose 25 ML; Start 04/04/16 at 22:30 Dextrose (D50w Syringe) 50 ml Q15M PRN IV DECREASED GLUCOSE; Start 04/04/16 at 22:30 Glucagon (Glucagen) 1 mg Q15M PRN IM DECREASED GLUCOSE; Start 04/04/16 at 22:30 Glucose 15 gm 15 gm Q15M PRN BUCCAL DECREASED GLUCOSE; Start 04/04/16 at 22:30 Sodium Chloride (NS) 1,000 ml @ 100 mls/hr Q10H IV Last administered on 12:29; Admin Dose 100 MLS/HR; Start 04/04/16 at 23:00 Insulin Glargine (Lantus) 25 unit HS SC Last administered on 04/13/16 20:43; Admin Dose 25 UNIT; Start 04/04/16 at 21:00 Levofloxacin (Levaquin) 500 mg DAILY@06 PO Last administered on 04/14/16 05:27 ; Admin Dose 500 MG; Start 04/06/16 at 06:00 Ferrous Sulfate (Ferrous Sulfate (Ec)) 325 mg DAILY PO Last administered on 04/14 08:25; Admin Dose 325 MG; Start 04/07/16 at 09:00 Ascorbic Acid (Vitamin C) 500 mg DAILY PO Last administered on 04/14/16 08:25; Admin Dose 500 MG; Start 04/07/16 at 09:00 Oxycodone/ Acetaminophen 1 tab 1 tab Q4H PRN PO PAIN Last administered on 04:14; Admin Dose 1 TAB; Start 04/06/16 at 22:00 Vancomycin HCl/ Sodium Chloride (Vancocin/NS) 150 ml @ 75 mls/hr Q12H IVPB Last administered on 04/14/16 08:25; Admin Dose 75 MLS/HR; Start 04/08/16 at 20: 00 Cilostazol (Pletal) 100 mg BID PO Last administered on 04/14/16 08:25; Admin Dose 100 MG; Start 04/09/16 at 21:00 IV Flush (NS 10 ml) 10 ml PRN PRN IV IV PROTOCOL; Start 04/11/16 at 12:00 Ibuprofen (Motrin) 400 mg Q6H PRN PO PAIN OR TEMP ABOVE 38C Last administered on 04/12/16 21:42; Admin Dose 400 MG; Start 04/12/16 at 21:30 Collagenase (Santyl) 1 applic DAILY TOP Last administered on 04/14/16 08:27; Admin Dose 1 APPLIC; Start 04/13/16 at 18:00 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
== END 2016-04-14 19:44 | disposition home health service (06) | DRG 982 ==
LOC: PP2 19:05
PROVIDERS: ADMIT Family Medicine; ATTEND Family Medicine
PROC: 0KBV0ZZ Excision of Right Foot Muscle, Open Approach (ICD-10-PCS; 2016-04-06)
PROC: 0KBW0ZZ Excision of Left Foot Muscle, Open Approach (ICD-10-PCS; principal; 2016-04-06 20:00)
DX: E11.621 Type 2 diabetes mellitus with foot ulcer (principal); M86.8X7 Other osteomyelitis, ankle and foot; E11.42 Type 2 diabetes mellitus with diabetic polyneuropathy; E11.51 Type 2 diabetes mellitus with diabetic peripheral angiopathy without gangrene; L97.512 Non-pressure chronic ulcer of other part of right foot with fat layer exposed; L97.513 Non-pressure chronic ulcer of other part of right foot with necrosis of muscle; I10 Essential (primary) hypertension; E78.5 Hyperlipidemia, unspecified; Z89.422 Acquired absence of other left toe(s); Z89.421 Acquired absence of other right toe(s); Z91.19 Patient's noncompliance with other medical treatment and regimen; E11.610 Type 2 diabetes mellitus with diabetic neuropathic arthropathy; D50.9 Iron deficiency anemia, unspecified; B95.2 Enterococcus as the cause of diseases classified elsewhere; B95.4 Other streptococcus as the cause of diseases classified elsewhere; B96.4 Proteus (mirabilis) (morganii) as the cause of diseases classified elsewhere; E11.69 Type 2 diabetes mellitus with other specified complication; B95.62 Methicillin resistant Staphylococcus aureus infection as the cause of diseases classified elsewhere; L97.529 Non-pressure chronic ulcer of other part of left foot with unspecified severity
CPT/HCPCS: 36430; 36569; 71010; 73610; 73630; 73721; 76937; 80048; 80053; 80061; 80202; 81001; 81003; 82565; 82728; 82962; 83036; 83525; 83540; 83735; 84260; 84443; 84520; 85014; 85018; 85025; 85610; 85730; 86803; 86850; 86900; 86901; 86920; 87040; 87070; 87081; 87340; 90732; 93005; J0690; J1610; J1650; J1815; J2250; J2543; J2916; J3010; J3370; J7030; J7040; P9016